=== PATIENT | female | born 1975 | race Caucasian/White ===

== ENCOUNTER 2023-01-16 01:45 | Day surgery (SDC) | payer BC, SELFPAY ==
[2023-01-05 15:24] VITALS: BMI 20.2
[2023-01-16 09:11] VITALS: BP 118/83; PULSE 87; RESP 16; TEMP 36.6; O2SAT 98; BMI 19.1
[2023-01-16] MEDS: LACTATED RINGERS 1,000 ML 150 ML IV CONT (09:23)
--- NOTE | 2023-01-16 09:50 | PM.HPGS ---
History of Present Illness History of Present Illness Consent: Risks, benefits, and alternatives have been discussed and questions answered. Patient agrees to proceed with procedure. Chief complaint: LLQP Narrative: Lindsay Caputo is a 47 year old female here for screening colonoscopy, had one at 33 yo because constipation, also she has intermittent llq pain Review of Systems Constitutional: Constitutional: Denies headache(s) and Denies weakness Eyes: Eyes: Denies blurry vision ENT: Reports Normal hearing present, Denies headache(s) and Denies neck pain Cardiovascular: Cardiovascular: Denies chest pain and Denies dyspnea Respiratory: Respiratory: Denies dyspnea Gastrointestinal: Gastrointestinal: Reports no additional gastrointestinal complaints Genitourinary: Genitourinary: Denies dysuria Musculoskeletal: Musculoskeletal: Denies neck pain Integumentary/Breasts: Skin/Breast: Denies dry skin Neurologic: Reports Normal hearing present, Denies headache(s) and Denies weakness Psychiatric: Psychiatric: Denies anxiety Endocrine: Endocrine: Denies change in body appearance Hematologic/Lymphatic: Hematologic/Lymphatic: Denies easy bleeding Allergic/Immunologic: Allergic/Immunologic: Denies urticaria PMFSH Past Medical History Medical History (Updated 11/22/22 @ 14:22 by Laura Summers, ABISAI) Acne treated by social work program coordinator Dr. romo Acute non-recurrent maxillary sinusitis Allergies BMI 20.0-20.9, adult Body mass index (BMI) of 19.0 to 19.9 in adult Encounter for wellness examination in adult Family history of pancreatic cancer Irregular menses LLQ abdominal pain Lower abdominal pain Otitis Screening for colon cancer Seasonal allergic rhinitis treated by altitude chamber technician with immunotherapy with allergies to grasses, mold, trees, dust mite, ragweed, dander Vitamin B12 deficiency (11/07/22) level low at 346 with goal greater than 400 with hemoglobin 15.3 on 11/07/2022. Family History Family History Father Diabetes mellitus Heart disease Mother Lymphoma Diabetes mellitus Grandparent Hypertension Grandparent Diabetes mellitus Social History Social History Smoking status: Never smoker Alcohol intake: current Alcohol use details: occasionally Substance use: never Substance use type: does not use Lack of Transportation: No Lack of Food: Never True Current Housing: I Have Housing Concerned About Future Housing: No Difficulty Paying Gas/Electric Bills: No Difficulty Paying for Meds: No Currently Unemployed: No Education: Master's Degree or Higher Difficulty w/ Childcare or Family Care: No Living arrangements: with family Spiritual care concerns: No Meds Home Medications and Allergies Home Medications Medication Instructions Recorded Confirmed Type fexofenadine 180 mg tablet 180 mg PO DAILY PRN Allergy 09/28/21 01/16/23 History (Perlita Allergy) spironolactone 100 mg tablet 100 mg PO DAILY 09/28/21 01/16/23 History Women's Daily 1 tab-cap PO DAILY 01/05/23 01/16/23 History fluticasone propionate 50 1 spray intranasal DAILY 01/05/23 01/16/23 History mcg/actuation nasal spray,suspension (Flonase Allergy Relief) omega 8-iwu-qeu-fish oil 1,200 mg 1 cap PO DAILY 01/05/23 01/16/23 History (144 mg-216 mg) capsule (Fish Oil) Allergies Allergy/AdvReac Type Severity Reaction Status Date / Time No Known Allergies Allergy Verified 01/16/23 09:08 Vital Signs Vital Signs - 24 hr 01/16/23 09:11 Temperature 97.8 F Pulse Rate 87 Respiratory Rate 16 Blood Pressure 118/83 Pulse Oximetry 98 Oxygen Delivery Room Air Exam Const: General: comfortable and no acute distress HENMT: Face/Nose/Sinus: Normal nares present Eyes: General: appearance normal, both eyes and all related structures Neck: Neck: no JVD Resp: Au
--- NOTE | 2023-01-16 09:53 | WPDANESEPPF ---
Anes - Initial Pre Proc Eval Procedure: Operation Date: 01/16/23 10:30 Proposed Procedures p Colonoscopy - Jh Baltazar MD Date/Time: 01/16/23 09:53 Surgeon: Jh Baltazar MD Pre Op Diagnosis: LLQP Patient Data Age: 47 Gender: F Height: 1.63 m Weight: 50.4 kg Last Vital Signs Temp 97.8 F 01/16/23 09:11 Pulse 87 01/16/23 09:11 Resp 16 01/16/23 09:11 BP 118/83 01/16/23 09:11 Pulse Ox 98 01/16/23 09:11 O2 Del Method Room Air 01/16/23 09:11 Allergies Allergy/AdvReac Type Severity Reaction Status Date / Time No Known Allergies Allergy Verified 01/16/23 09:08 Home Medications Medication Instructions Recorded Confirmed Type fexofenadine 180 mg tablet 180 mg PO DAILY PRN Allergy 09/28/21 01/16/23 History (Perlita Allergy) spironolactone 100 mg tablet 100 mg PO DAILY 09/28/21 01/16/23 History Women's Daily 1 tab-cap PO DAILY 01/05/23 01/16/23 History fluticasone propionate 50 1 spray intranasal DAILY 01/05/23 01/16/23 History mcg/actuation nasal spray,suspension (Flonase Allergy Relief) omega 1-tbs-tue-fish oil 1,200 mg 1 cap PO DAILY 01/05/23 01/16/23 History (144 mg-216 mg) capsule (Fish Oil) Patient hx anesthesia problems: none Family hx anesthesia problems: none Results Review: All pre-operative results and documents have been reviewed as part of the pre-operative evaluation. 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 romo Acute non-recurrent maxillary sinusitis Allergies BMI 20.0-20.9, adult Body mass index (BMI) of 19.0 to 19.9 in adult Encounter for wellness examination in adult Family history of pancreatic cancer Irregular menses LLQ abdominal pain Lower abdominal pain Otitis Screening for colon cancer Seasonal allergic rhinitis treated by patient admitting representative with immunotherapy with allergies to grasses, mold, trees, dust mite, ragweed, dander Vitamin B12 deficiency (12/19/22) level low at 346 with goal greater than 400 with hemoglobin 15.3 on 11/07/2022. Family History Family History Father Diabetes mellitus Heart disease Mother Lymphoma Diabetes mellitus Grandparent Hypertension Grandparent Diabetes mellitus Social History Social History Smoking status: Never smoker Alcohol intake: current Alcohol use details: occasionally Substance use: never Substance use type: does not use Lack of Transportation: No Lack of Food: Never True Current Housing: I Have Housing Concerned About Future Housing: No Difficulty Paying Gas/Electric Bills: No Difficulty Paying for Meds: No Currently Unemployed: No Education: Master's Degree or Higher Difficulty w/ Childcare or Family Care: No Living arrangements: with family Spiritual care concerns: No Anes - Eval Final PreProcedure Day of Procedure 01/16/23 09:53 Patient weight: normal Heart: regular rate and rhythm Lungs: clear to auscultation Airway: Mallampati scale class II Neurological: alert and oriented Last oral intake: >/= 8 hours ASA classification: I Emergent: no Anesthetic plan: proceed Anesthesia type and monitoring: general GIVS and standard monitoring Results Review: All pre-operative results and documents have been reviewed as part of the pre-operative evaluation. Informed Consent: The patient's anesthetic plan and its attendant risks and benefits were discussed with the patient/family/POA. Questions were solicited and answers provided to the satisfaction of the patient/family/POA.
[2023-01-16 10:11] VITALS: BP 113/72; PULSE 75; RESP 19; O2SAT 100
[2023-01-16 10:21] VITALS: BP 117/78; PULSE 65; RESP 18; O2SAT 100
[2023-01-16 10:31] VITALS: BP 123/82; PULSE 66; RESP 14; O2SAT 100
== END 2023-01-16 10:43 | disposition home or self-care (01) ==
PROVIDERS: PCP Family Medicine; Visit Provider Internal Medicine Gastroenterology
PROC: 0DJD8ZZ Inspection of Lower Intestinal Tract, Via Natural or Artificial Opening Endoscopic (ICD-10-PCS; CPT 45378; principal; 2023-01-16 10:30)
DX: Z12.11 Encounter for screening for malignant neoplasm of colon (principal)
CPT/HCPCS: 45378; J2704; J7120

== ENCOUNTER 2023-06-07 14:13 | Outpatient (CLI) | payer BC, SELFPAY ==
--- NOTE | ~2023-06-07 | CT_ITS ---
EXAMINATION: CT abdomen pelvis w con DATE: 06/07/2023 14:59 INDICATION: Left lower quadrant abdominal pain TECHNIQUE: Computed tomography (CT) of the abdomen and pelvis was performed with 100 CC Omnipaque 350 intravenous contrast. Automated exposure control and iterative reconstruction technique were employe d. Exam dose: 206.54 mGy-cm total exam DLP. COMPARISON: None. FINDINGS: Normal heart size. No pericardial or pleural effusion. The lung bases are clear of infiltra te or consolidation. The liver, gallbladder, bile ducts, spleen, pancreas, pancreatic duct, and adrenal glands and kidneys appear normal. Normal caliber of the abdominal aorta. Multiple right adnexal cysts measuring up to 3.5 cm, likely ovarian or paraovarian. Consider pelvic u ltrasound correlation as clinically appropriate. The uterus and adnexal areas and urinary bladder oth erwise appear unremarkable. There is a prominent amount of fecal material in the colon. No bowel obstruction, bowel wall thickeni ng, pneumatosis or intraperitoneal free air is detected. Normal caliber of the abdominal aorta. No intraperitoneal or retroperitoneal or pelvic mass lesion or adenopathy or ascites. Included skeletal structures are unremarkable. IMPRESSION: Right ovarian and/or paraovarian cyst measuring up to 3.5 cm; consider pelvic ultrasound correlation Reviewed, dictated and finalized at [facility]. Reviewed, dictated and finalized at location [facility]. IMPRESSION: Right ovarian and/or paraovarian cyst measuring up to 3.5 cm; cons ider pelvic ultrasound correlation
== END 2023-06-07 14:14 | disposition home or self-care (01) ==
PROVIDERS: PCP Family Medicine; Visit Provider Nurse Practitioner
DX: R10.32 Left lower quadrant pain (principal); N83.201 Unspecified ovarian cyst, right side
CPT/HCPCS: 74177; Q9967

== ENCOUNTER 2025-05-14 10:23 | Outpatient (CLI) | payer BC, SELFPAY ==
--- NOTE | ~2025-05-14 | US_ITS ---
RIGHT UPPER QUADRANT ABDOMINAL ULTRASOUND (Doppler ultrasound interrogation techniques used as needed for this exam.) Ordering provider: Alistair Coon MD History: . K80.50 - Calculus of bile duct without cholangitis or cho... . Comparison: None. FINDINGS: PANCREAS: Normal echotexture and size. PORTAL VEIN: Hepatopedal flow demonstrated. LIVER: Normal size and echotexture. No focal hepatic lesions or perihepatic fluid collections are kerrie ntified. BILIARY DUCTS: No intra or extrahepatic biliary dilation. Common bile duct measures 4 mm in diameter which is normal for patient's age. GALLBLADDER: Normal. No stones, sludge, gallbladder wall thickening or pericholecystic fluid. Negati ve sonographic Hector's sign. FREE FLUID: None visualized within the upper abdomen. IMPRESSION: normal right upper quadrant ultrasound. Reviewed, dictated and finalized at location A.
== END 2025-05-14 10:24 | disposition home or self-care (01) ==
PROVIDERS: PCP Family Medicine; Visit Provider Family Medicine
DX: K80.50 Calculus of bile duct without cholangitis or cholecystitis without obstruction (principal)
CPT/HCPCS: 76705

== ENCOUNTER 2025-06-11 08:23 | Outpatient (CLI) | payer BC, SELFPAY ==
--- NOTE | ~2025-06-11 | NM_ITS ---
[id number] Procedure: Hepatobiliary scan performed following IV administration 4.6 mCi Tc 99m Choletec. At 60 m inutes 1 mcg CCK administered IV for evaluation of gallbladder ejection fraction. Indication: Stone in the bile ducts. Comparison: No prior studies for comparison. Findings: There is normal radiotracer uptake in the liver parenchyma with prompt excretion into the b iliary tract. Gallbladder visualized at 25 minutes. There is normal flow of tracer into the bowel. Gallbladder ejection fraction is 11%. (Normal is considered 10-90%, but most patients with gallbladde r dysfunction have GBEF of less than 35%) Impression: 1: Low gallbladder ejection fraction measuring 11%. Low GBEF is associated with gallbladder dysfunct ion, although not specific for acute or chronic cholecystitis. Reviewed, dictated and finalized at location A. Impression: 1: Low gallbladder ejection fraction measuring 11%. Low GBEF is associated wit h gallbladder dysfunction, although not specific for acute or chronic cholecyst itis.
--- OUTSIDE RECORDS SUMMARY | 2025-06-11 08:29 | XMS_ITS | Encounter Summary ---
Author Organization [facility] Healthcare Address [address] [place] [address] Care Team Providers Care Retail Account Manager Name Role Phone Alistair Coon MD Primary Care Provider [phone] Encounter Details Date Type Department Care Team (Latest Contact Info) Description 05/07/2025 Results Follow-Up [facility] Obstetrical Gynecology [address] [address] Kymberly Parsons MD [address] [place] [address] [phone] Pap and High Risk HPV and Genotyping (Cytology Component) Social History Tobacco Use Types Packs/Day Years Used Date Smoking Tobacco: Never Passive Smoke Exposure: Never Smokeless Tobacco: Never Comments No Sex and Gender Information Value Date Recorded Sex Assigned at Not on file 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
--- OUTSIDE RECORDS SUMMARY | 2025-06-11 08:29 | XMS_ITS ---
Author Organization [facility] ([address]) Address [address] [place] [address] Care Team Providers Care Road Mixer Operator Name Role Phone Froylan HARPER, Larry Primary Care Provider Richard Baez Unavailable [phone] Madonna HARPER, Kenn Unavailable Unavailable Sidra Molina [phone] REASON FOR VISIT [facility] follow-up Encounters Encounter Location Date Provider Diagnosis [address] [address] 03/20/2025 Sidra Molina Plan Of Treatment No Information Progress Notes * Lindsay PALMER RDOB: [birth year] (50 yo F)Acc No.[id number]:03/20/2025 Progress Notes Patient: Leena RAGLAND Lindsay Meir Provider: Shalom Molina DNP MOISTURE MACHINE TENDER-C :1975 A ge:50 Y S ex:Female Date:03/20/2025 Address:[address] [facility] Pcp:Larry Galeano MD Subjective: * Chief Complaints: * 1 . [facility] follow-up. * Medical History: Objective: * Vitals: Assessment: Plan: * Treatment: * Billing Information: * Visit Code: * Procedure Codes: * Electronic signature of Sidra Molina DNP, FNP-C on 06/11/2025 at 08:28 AM CDT Sign off status: Pending * Provider: PRADEEP Castaneda Date: 0 03/20/2025 Generated for Brad zhu/Lakisha/Mario on: 0 06/11/2025 08:28 AM CDT
--- OUTSIDE RECORDS SUMMARY | 2025-06-11 08:29 | XMS_ITS | Clinical Summary ---
Author Organization [facility] Address [address] [place] [address] Care Team Providers Care Media Assistant Name Role Phone Unavailable Primary Care Provider Unavailabl e Source Comments [facility],non-owned Affiliates and Associated Physician Practices is amultiple site organization consisting of ambulatory clinics and hospital sitesin [place], [place], [place] and [place]. This disclosure is being madepursuant to the Care Everywhere program and may not contain all information available regarding this patient. Last updated 18.[facility] Social History Tobacco Use Types Packs/Day Years Used Date Smoking Tobacco: Never Assessed Comments Unknown Sex and Gender Information Value Date Recorded Sex Assigned at Not on file Legal Sex Female 9:30 AM CDT Gender Identity Not on file Sexual Orientation Not on file Plan of Treatment Health Maintenance Due Date Last Done Comments COLOGUARD (AGES 45-75) - COL ON CA SCREENING 1975 COLON MONITORING 1975 COLONOSCOPY - COLON CA SCREENING 1976 CT COLONOGRAPHY - COLON CA SCREENING 1975 Colorectal Cancer Screening 1975 FIT - COLON CA SCREENING 1976 FLEX SIG - COLON CA SCREENING 1976 LIPID TESTING 1975 MAMMOGRAM 1976 HIV SCREENING 1991 HEPATITIS C SCREENING 03/12/1994 DTAP/TDAP/TD VACCINES (1 - Tdap) 1995 HEPATITIS B VACCINE (1 of 3 - 19+ 3-dose series) 1995 PAP SMEAR 1997 COVID-19 VACCINE ( - 2023-2 5 season) 2024 DEPRESSION SCREENING 11/20/2024 INFLUENZA VACCINE (#1) 2025 ZOSTER VACCINE (1 of 2) 2026 HIB VACCINE Aged Out No longer eligi ble based on patient's age to complete this topic HPV VACCINE Aged Out No longer eligi ble based on patient's age to complete this topic MENINGOCOCCAL (Group B) VACC INE SHARED DECISION-MAKING Aged Out No longer eligibl e based on patient's age to complete this topic MENINGOCOCCAL GROUPS A/C/Y/W VACCINE Aged Out No longer eligible b ased on patient's age to complete this topic Insurance [facility]
--- OUTSIDE RECORDS SUMMARY | 2025-06-11 08:29 | XMS_ITS | Encounter Summary ---
Author Organization [facility] Address [address] [facility] [place] [address] Care Team Providers Care Aviation Technical Systems Specialist Name Role Phone Unavailable Primary Care Provider Unavailabl e Encounter Details Date Type Department Care Team (Late st Contact Info) Description 06/08/2023 Lab Requisition [facility] - DermPath Lab [address] [facility] [address] [place] [id number] Sher Dover MD [address] [facility] [place] [address] Social History Tobacco Use Types Packs/Day Years Used Date Smoking Tobacco: Never Assessed Comments Unknown Sex and Gender Information Value Date Recorded Sex Assigned at Not on file Legal Sex Female 9:30 AM CDT Gender Identity Not on file Sexual Orientation Not on file documented as of this encounter Plan of Treatment Not on file documented as of this encounter Procedures Procedure Name Priority Date/Time Associated Diagnosis Comments DERMATOPATHOLOGY Routine 06/06/2023 12:0 0 AM CDT documented in this encounter Results * DERMATOPATHOLOGY (06/06/2023 12:00 AM CDT) Case Report Dermatopathology Report Case: [id number] Authorizing Provider: Sher Dover MD Collected: 06/06/2023 12:00 AM Ordering Location: [facility] DermPath Lab Received: 06/08/2023 09:36 AM Pathologist: Leydi Daniel MD Specimen: Skin, right mid chest 3 3:12 PM CDT DERMATOPATHOLOGY LABORATORY Final Diagnosis Specimen A. SKIN, right mid chest: ACTINIC KERATOSIS, ACANTHOLYTIC TYPE (L57.0) EPIDERMAL NECROSIS SUGGESTIVE OF EXCORIATION (L98.499) (see microscopic description) 3 3:12 PM CDT DERMATOPATHOLOGY LABORATORY at 1512 CDT Clinical History BCCA vs angioma. Path#[id number] 3 3:12 PM CDT DERMATOPATHOLOGY LABORATORY Gross Description Specimen A: Received is one formalin filled container labeled with the patient's name and designated right mid chest. The specimen consists of a shave biopsy measuring 6x3x1 mm. Jar 0. 3 3:12 PM CDT DERMATOPATHOLOGY LABORATORY Microscopic Description Specimen A. SKIN, right mid chest: There is focal parakeratosis. The lower half of the epidermis shows disorderly maturation of keratinocytes with nuclear pleomorphism. Focally there is a suprabasilar cleft with acantholytic cells. The epidermis is focally necrotic and covered with a scale-crust. There is fibrin at the base. Additional deeper sections were obtained and reviewed. 3 3:12 PM CDT DERMATOPATHOLOGY LABORATORY Disclaimer An external and internal positive and negative controls are appropriate for the histochemical, immunohistochemical and immunofluorescence stain(s) in this case (if any), except where stated explicitly. The performance characteristics of the stain(s) cited in this report were developed and its performance characteristic determined by the Dermatopathology Laboratory at [facility], directed by Dr. Ibeth Engle. These tests need not be, and therefore are not, approved by the [place] Food and Drug Administration. The tests are used for clinical purposes. Billing Codes Specimen Charges Stain Charges 97283 1 3 3:12 PM CDT DERMATOPATHOLOGY LABORATORY Embedded Images 3 3:12 PM CDT DERMATOPATHOLOGY LABORATORY Pathology/Cytolog y TISSUE SPECIMEN FROM SKIN / Unknown 06/06/2023 06/08/2023 9:36 AM CDT us Sher Dover MD LAB - PATHOLOGY/CYTOLOGY ORDER JOSE Final Result DERMATOPATHOLOGY LABORATORY [facility] - Department of Dermatology [address] [place] [address], [facility] [phone] documented in this encounter Visit Diagnoses Not on filedocumented in this encounter
--- OUTSIDE RECORDS SUMMARY | 2025-06-11 08:29 | XMS_ITS | Clinical Summary ---
Author Organization [facility] Building [address] [place] [phone] Care Team Providers Care Stock Blender Name Role Phone Alistair Coon MD Primary Care Provider [phone] Allergies No known active allergies Medications azithromycin (ZITHROMAX) 250 mg tablet TAKE 2 TABLETS BY MOUTH TODAY, THEN TAKE 1 TABLET DAILY FOR 4 DAYS 09/01/20 22 Active calcium carbonate-vitamin D3 (Caltrate 600 plus D) 1,500 mg (600 mg elemental)-800 unit tablet,chewable every 12 hours Active fluticasone propionate (FLONASE) 50 mcg/actuation nasal spray USE 2 SPRAYS INTRANASALLY ONCE A DAY FOR 30 DAYS 07/04/20 22 Active olopatadine 0.6 % spray,non-aerosol olopatadine 0.6 % nasal spray Active spironolactone (ALDACTONE) 100 mg tablet 07/25/20 22 Active valACYclovir (VALTREX) 1 gram tablet valacyclovir 1 gram tablet Active drospirenone-kristin trol (Nextstellis) 3 mg- 14.2 mg (28) tablet Take 1 tablet by mouth daily 28 tablet 3 10/05/20 22 Active Additional Information Patient not taking.Reported on 04/29/2025 predniSONE (DELTASONE) 20 mg tablet Take 1 tablet (20 mg) by mouth daily 02/17/20 23 Active cefdinir (OMNICEF) 300 mg capsule Take 1 capsule (300 mg total) by mouth every 12 (twelve) hours 02/11/20 23 Active fexofenadine (Perlita Allergy) 180 mg tablet daily Active azelastine (ASTELIN) 137 mcg (0.1 %) nasal spray every 12 hours 02/03/20 23 Active EPINEPHrine 1:100,000 in bacteriostatic sodium chloride 0.9% syringe 0.3 mg intramuscularly once for 1 dose(s) Active escitalopram (LEXAPRO) 5 mg tablet Take 1 tablet (5 mg total) by mouth daily 90 tablet 1 06/21/20 23 Active Additional Information Patient not taking.Reported on 04/29/2025 ipratropium (ATROVENT) 42 mcg (0.06 %) nasal spray Administer 1-2 sprays into affected nostril(s) 3 (three) times a day 10/11/20 23 Active busPIRone (BUSPAR) 10 mg tabletIndications :Generalized Anxiety Disorder Take 1 tablet (10 mg total) by mouth 3 (three) times a day as needed (anxiety) 30 tablet 3 11/16/20 23 Active Additional Information Patient not taking.Reported on 04/29/2025 levocetirizine (XYZAL) 5 mg tablet Take 1 tablet (5 mg total) by mouth daily 12/07/19 24 Active tobramycin-dexAME THasone (TOBRADEX) ophthalmic solution instill 1 drop into affected eye(s) every 6 hours for 1 week, shake well 08/10/20 24 Active Active Problems No known active problems Encounters Date Type Department Care Team Description 05/07/2025 Results Follow-Up [facility] Obstetrical Gynecology [address] [phone] Kymberly Parsons MD Pap and High Risk HPV and Genotyping (Cytology Component) 04/29/2025 12:17 PM CDT - 04/29/2025 11:59 PM CDT Hospital Encounter [facility] Medical Office Building [address] [place] [phone] Well woman exam Discharge Disposition: Discharge to home or self care 04/29/2025 9:30 AM CDT Office Visit [facility] Obstetrical Gynecology [address] [facility] [address] [place] [phone] Kymberly Parsons MD Well woman exam (Primary Dx) from Last 3 Months Medical History Medical History Date Comments Ovarian cyst Family History Medical History Relation Name Comments Non-Hodgkin's Lymphoma Mother Pancreatic cancer Mother Breast cancer Neg Hx Colon cancer Neg Hx Ovarian cancer Neg Hx Prostate cancer Neg Hx Uterine cancer Neg Hx Relation Name Status Comments Father Mother Alive Social History Tobacco Use Types Packs/Day Years Used Date Smoking Tobacco: Never Passive Smoke Exposure: Never Smokeless Tobacco: Never Tobacco Cessation:Counseling Given: Not Answered Comments No Sex and Gender Information Value Date Recorded Sex Assigned at Not on file 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 Gender Identity Not on file Sexual Orientation Not on file Obstetrics History Para Term AB IAB SAB Ectopic Multiple Livin g Live Births 2 2 2 2 2 Date Outcome GA Total Labor Labor/2nd/3rd Weight Sex Type Anes PTL Nydia A1 A5 Name Clin Term Term Comments Last Filed Vital Signs Vital Sign Reading Time Taken Comments Blood Pressure 110/80 04/29/2025 9:41 AM CDT Pulse - - Temperature - - Respiratory Rate - - Oxygen Saturation - - Inhaled Oxygen Concentration - - Weight 52.6 kg (116 lb) 04/29/2025 9:41 AM CDT Height 162.6 cm (5' 4) 04/29/2025 9:41 AM CDT Body Mass Index 19.91 04/29/2025 9:41 AM CDT Plan of Treatment Health Maintenance Due Date Last Done Comments Colon Cancer Screening-Colonoscopy 1975 Depression Screening 1975 Hepatitis C Screening 1975 Hepatitis B Screening 1994 DTaP/Tdap/Td Vaccine (1 - Tdap) 08/06/2018 08/05/2018 Breast Cancer Screening-Mammogram 08/05/2025 08/05/2024, 08/03/2023, 07/08/2022, Additional history exists Cervical Cancer Screening 04/29/20262024, 04/29/2025, 09/06/2022 Regular Well Visit/Exam 18-64 04/29/2026 04/29/2025, 11/16/2023, 09/06/2022 Influenza Vaccine Completed 08/31/2024, , 08/30/2020, Additional history exists Pneumococcal vaccine <65 Aged Out No longer eligible based on patient's age to complete this topic Procedures Procedure Name Priority Date/Time Associated Diagnosis Comments PAP AND HIGH RISK HPV, REFLEX TO GENOTYPING Routine 04/29/2025 10:23 AM CDT Well woman exam HIGH RISK HPV DNA DETECTION WITH GENOTYPING Routine 04/29/2025 10:23 AM CDT Well woman exam SCREENING MAMMOGRAM BILATERAL W RAYRAY Schedule Routine, Read Routine (OP Routine) 08/05/2024 4:10 PM CDT Screening mammogram, encounter for from Last 3 Months or Most Recently Relevant to Health Maintenance Results * High Risk HPV DNA Detection with Genotyping (Molecular component) (04/29/2025 10:23 AM CDT) HPV HR 16 Not Detected Not Detected [facility] Comment:Testing performed by : [facility], [address] [place]., [address] HPV HR 18 Not Detected Not Detected JOSE Comment:Testing performed by : [facility], [address] [place]., [address] HPV HR Non 16/18 Not Detected Not Detected JOSE Comment: Interpretive Data Nucleic acid amplification for detection of high-risk Human Papilloma virus (HPV) is performed by the Woodrow Tito 6800 HPV test. This assay specifically detects HPV-16 and HPV-18 genotypes. The following HPV genotypes are detected as high-risk HPV: HPV-31, 33, 35, ,39, 45, 51, 52, 56, 58, 59, 66, and 68. This assay has been approved by the [place] Food and Drug Administration for detection of HPV in cervical specimens collected by a physician using an endocervical brush/spatula or cervical broom and placed in the ThinPrep Pap Test PreservCyt collection containers. The performance characteristics of this test have been verified by the [facility] Molecular Infectious Disease laboratory. Correlate with separately reported cytology results, as applicable. Interpretive data last revised 23 Testing performed by: [facility], [address] [place]., [address] Endocervical 04/29/2025 10:2 3 AM CDT 04/30/2025 7:44 AM CDT Narrative JOSE - 05/01/2025 4:47 AM CDT Clinical history and diagnosis->screening Testing type->Screening Last menstrual period (date if known)->03/24/25 Kymberly Parsons MD LAB BODY FLUIDS AND STOOL S ORDERABLES Final Result JOSE [address] [facility] Department [place] [address] [facility] * Pap and High Risk HPV and Genotyping (Cytology Component) (04/29/2025 10:23 AM CDT) Thin prep (Pap test) 04/29/2025 10:23 AM CDT 04/30/2025 2:17 AM CDT Narrative PATHOLOGY [facility] - 05/06/2025 9:14 PM CDT EPIC results best viewed via link to PDF [facility] [place] [address] Note to Patients: This report may contain a detailed description of human tissue sent by a health care provider to the laboratory for pathologic evaluation. The content of this report is essential for diagnosis and may provide important critical findings. This information may be unfamiliar to patients to review without a medical professional present. It is advised that the patient review this report in the presence of a health care provider who can answer questions and explain the details. CYTOPATHOLOGY REPORT FINAL Patient Name: SHANITA PALMER Gender: Veronika : 1975 (Age: 50) Address: [address] [place] [phone] Hospital #: [id number] Service: DEFAULT Location: Patient Type: [facility] SPECIMEN Taken: 04/29/2025 Received: 04/30/2025 Accessioned: 04/30/2025 Reported: 05/06/2025 Physician(s): Kymberly Parsons M.D. FINAL INTERPRETATION SOURCE OF SPECIMEN Liquid based Thin Prep pap with HPV: STATEMENT OF ADEQUACY - Satisfactory for evaluation - Endocervical cells/transformation zone sample absent - Obscuring inflammation present GENERAL CATEGORIZATION: - Negative for squamous intraepithelial lesion or malignancy INTERPRETATION: - Reactive cellular changes associated with inflammation Comments (Normal-Negative for High Risk HPV) HPV HR 16- Not detected HPV HR 18-Not detected HPV HR non 16/18- Not detected Interpretive Data Nucleic acid amplification for detection of high-risk Human Papilloma virus (HPV) is performed by the Woodrow Tito 6800 HPV test. This assay specifically detects HPV- 16 and HPV-18 genotypes. The following HPV genotypes are detected as high-risk HPV: HPV-31, 33, 35, 39, 45, 51, 52, 56, 58, 59, 66, and 68. This assay has been approved by the [place] Food and Drug Administration for detection of HPV in cervical specimens collected by a physician using an endocervical brush/spatula or cervical broom and placed in the ThinPrep Pap Test PreservCyt collection containers. The performance characteristics of this test have been verified by the [facility] Molecular Infectious Disease laboratory. Correlate with reported cytology results, as applicable. Interpretive data last revised 23 [facility]/05/06/2025 21:14 By this signature, I attest that the above diagnosis is based upon my personal examination of the slides(and/or other material indicated in the diagnosis). Bethel Son DO Report Electronically Reviewed and Signed Out By Bethel Son DO 05/06/2025 21:14:24 TORRES Suarez (ASCP) Cervicovaginal Cytology (Pap Test) Disclaimer: The Pap test is a screening test used to detect cervical cancer and its precursors; it is not a diagnostic procedure. False negative and false positive results do occur. Pap test results should be interpreted in the context of pertinent clinical information and biopsy results as indicated. CMS Clinical Laboratory Improvement Amendments (CLIA) mandate that cytologic and histologic results be correlated for laboratory quality assurance manager & improvement standards. FOR ALL HIGH-GRADE CASES we request submission of follow-up histological material and/or reports that have not been previously provided so that we may fulfill said required standards. Gross Description A. Liquid based Thin Prep pap with HPV: Cervical/vaginal - Screening ThinPrep Clinical Diagnosis and History Last Menstrual Period: 03/24/25 The patient is a 50 year old woman with screening pap. Report Images and scanned documents, if included only viewable in PDF version The performance characteristics of some immunohistochemical stains, in-situ hybridization and fluorescence in-situ hybridization tests and immunophenotyping by flow cytometry cited in this report (if any) were determined by the Surgical Pathology Department at [facility] as part of an ongoing senior software quality engineer program and in compliance with federally mandated regulations drawn from the Clinical Laboratory Improvement Act of 1988 (CLIA '88). Some of these tests rely on the use of analyte specific reagents and are subject to specific labeling requirements by the [place] Food and Drug Administration. Such diagnostic tests may only be performed in a facility that is certified by the Department of Health and Human Services as a high complexity laboratory under CLIA '88. The FDA has determined that such clearance or approval is not necessary. This test is used for clinical purposes. It should not be regarded as investigational or for research. Nevertheless, federal rules concerning the medical use of analyte specific reagents require that the following disclaimer be attached to the report: This test was developed and its performance characteristics determined by the Surgical Pathology Department of [facility]. It has not been cleared or approved by the U. S. Food and Drug Administration. Kymberly Pasrons MD LAB CYTOLOGY ORDERABLES F inal Result PATHOLOGY [facility] * Screening Mammogram Bilateral W Rayray (08/05/2024 4:10 PM CDT) Anatomical Region Laterality Modality Breast Bilateral Mammography Impressions 08/05/2024 5:56 PM CDT BI-RADS ATLAS category (overall): 1 - Negative There is no mammographic evidence of malignancy. A 1 year screening mammogram is recommended. The patient has been or will be contacted. We recommend annual screening mammography for women at average risk of breast cancer beginning at age 40, based on guidelines of the [place] [employer] (ACR Practice Parameter for the Performance of Screening and Diagnostic Mammography) and [place] [employer]. For women with and elevated risk of breast cancer, please refer to the ACR Practice Parameter for specific screening recommendations. The patient will be entered into a reminder system with a target due date of 1 year for her next screening exam. Narrative 08/05/2024 5:56 PM CDT Screening Mammogram Bilateral W Rayray: 08/05/24 The study was acquired using full field digital technology and interpreted from soft copy. 2D digital mammographic views, as well as 3D digital tomosynthesis were performed in the CC and MLO projections. CLINICAL: Screening mammogram, encounter for. No relevant medical history has been documented for this patient. History of breast cancer in Neg Hx. COMPARISONS: 08/03/2023 Screening Mammogram Bilateral W Rayray 07/08/2022 Screening Mammogram Bilateral W Rayray 06/28/2021 Screening Mammogram Bilateral W Rayray 05/25/2020 Screening Mammogram Bilateral W Rayray BREAST TISSUE: The breasts are heterogeneously dense, which may obscure small masses. FINDINGS: There is no new suspicious finding in either breast on mammogram. us Self Screening Mammogram IMG MAMMO PROCEDURES Fi nal Result from Last 3 Months or Most Recently Relevant to Health Maintenance [place] [facility] Care Teams Stock Blender Relationship Specialty Start Date End Date Alistair Coon MD [address] [address] PCP - General Family Medicine 07/08/22
--- OUTSIDE RECORDS SUMMARY | 2025-06-11 08:29 | XMS_ITS | Referral Summary ---
Author Organization [facility] Medical Office Building [address] [place] [phone] Care Team Providers Care Pull Over Name Role Phone Alistair Coon MD Primary Care Provider [phone] Encounters Date Type Department Care Team Description 05/07/2025 Results Follow-Up [facility] Medical [facility] Obstetrical Gynecology [address] [phone] Kymberly Parsons MD Pap and High Risk HPV and Genotyping (Cytology Component) 04/29/2025 12:17 PM CDT - 04/29/2025 11:59 PM CDT Hospital Encounter [facility] Building [address] [place] [phone] Well woman exam Discharge Disposition: Discharge to home or self care 04/29/2025 9:30 AM CDT Office Visit [facility] Obstetrical Gynecology [address] [place] [phone] Kymberly Parsons MD Well woman exam (Primary Dx) from Last 3 Months Allergies No known active allergies Medications azithromycin [...] Active Active Problems No known active problems Social History Tobacco Use Types Packs/Day Years Used Date Smoking Tobacco: Never Passive Smoke Exposure: Never Smokeless Tobacco: Never Tobacco Cessation:Counseling Given: Not Answered Comments No Sex and Gender Information Value Date Recorded Sex Assigned at Not on file 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 Gender Identity Not on file Sexual Orientation Not on file Last Filed Vital Signs Vital Sign Reading [...] 04/29/2025 9:41 AM CDT Plan of Treatment Not on file Procedures Procedure Name Priority Date/Time Associated Diagnosis [...] HPV HR 16 Not Detected Not Detected [facility] Comment:Testing performed by : [facility], [address] [place] [address] HPV HR 18 Not Detected Not Detected [facility] Comment:Testing performed by : [facility], [address] [place] [address] HPV HR Non 16/18 Not Detected Not Detected [facility] Comment: Interpretive Data Nucleic acid amplification for [...] this test have been verified by the [facility] Molecular Infectious Disease laboratory. Correlate with separately reported cytology results, as applicable. Interpretive data last revised 23 Testing performed by: [facility], [address] [place]., [address] Endocervical 04/29/2025 10:2 3 AM CDT 04/30/2025 7:44 AM CDT Narrative JOSE - 05/01/2025 4:47 AM CDT Clinical history and diagnosis->screening Testing type->Screening Last menstrual period (date if known)->03/24/25 Kymberly Parsons MD LAB BODY FLUIDS AND STOOL S ORDERABLES Final Result JOSE [address] [facility] Department [place] [address] [facility] * Pap and High Risk HPV and Genotyping (Cytology Component) (04/29/2025 10:23 AM CDT) Thin prep (Pap test) 04/29/2025 10:23 AM CDT 04/30/2025 2:17 AM CDT Narrative PATHOLOGY [facility] - 05/06/2025 9:14 PM CDT EPIC results best viewed via link to PDF [facility] [place] [address] Note to Patients: This report may contain [...] REPORT FINAL Patient Name: SHANITA PALMER Gender: F : 1975 (Age: 50) Address: [address] [place] [phone] Hospital #: [id number] Service: DEFAULT Location: Patient Type: [facility] SPECIMEN Taken: 04/29/2025 Received: 04/30/2025 Accessioned: [...] this test have been verified by the [facility] Molecular Infectious Disease laboratory. Correlate with reported cytology results, as applicable. Interpretive data last revised 23 [facility]/05/06/2025 21:14 By this signature, I attest that [...] clinical information and biopsy results as indicated. [facility] Clinical Laboratory Improvement Amendments (CLIA) mandate that cytologic and histologic results be correlated for laboratory quality worker & improvement standards. FOR ALL HIGH-GRADE CASES [...] determined by the Surgical Pathology Department at [facility] as part of an ongoing quality assurance advisor program and in compliance with federally mandated [...] determined by the Surgical Pathology Department of [facility]. It has not been cleared or approved by the U. S. Food and Drug Administration. Kymberly Parsons MD LAB CYTOLOGY ORDERABLES F inal Result PATHOLOGY [facility] * Screening Mammogram Bilateral W Rayray (08/05/2024 [...] age 40, based on guidelines of the [employer] (ACR Practice Parameter for the Performance of Screening and Diagnostic Mammography) and [employer]. For women [...] Most Recently Relevant to Health Maintenance Insurance [facility] [place] Care Teams Pull Over Relationship Specialty Start Date End Date Alistair Coon MD [address] [address] PCP - General Family Medicine 07/08/22
--- OUTSIDE RECORDS SUMMARY | 2025-06-11 08:29 | XMS_ITS | Data Portability ---
Author Organization [facility], [employer] Address [address] [address] Assessment Encounter Date Assessment Date Assessment LastModified by Organization Details LastModified Time 05/15/2017 05/15/2017 Discussed potential complications and intervention options with the patient during this visit. Patient was instructed to increase room humidity and eat soft bland foods. Patient was instructed to gargle frequently with warm salt water. Raising the head of the bed, lozenges, and saline nasal spray were also recommended. Patient may take ibuprofen or acetaminophen as needed for pain control. If the issue does not improve in 24-48 hours, patient should return to the clinic for follow-up. Patient presented for follow up. Studies ordered as below. Discussed plan with patient/caregiver , who expressed understanding. Follow up as noted below. [email or web address] Not available 05/15/2017 14:39:09 07/15/2019 07/15/2019 Patient presente d to office today for their Medicare Annual Wellness Visit. Education was provided on healthy nutrition, including a diet rich in fruits and vegetables, minimizing simple carbohydrates, salt, and saturated fats. Encouraged regular cardiovascular exercise such as walking at least 30 minutes daily, 5 times per week. Emphasized preventive health measures and educated pt on fall prevention and community-based lifestyle interventions to help reduce health risks and promote healthy living. [email or web address] Not available 07/15/2019 18:41:52 07/15/2020 07/15/2020 Patient presente d to office today for their Medicare Annual Wellness Visit. Education was provided on healthy nutrition, including a diet rich in fruits and vegetables, minimizing simple carbohydrates, salt, and saturated fats. Encouraged regular cardiovascular exercise such as walking at least 30 minutes daily, 5 times per week. Emphasized preventive health measures and educated pt on fall prevention and community-based lifestyle interventions to help reduce health risks and promote healthy living. Not available 07/15/2020 18:49:35 Plan of Treatment Reminders Order Date Submit Date Provider Last Modified By Organization Details Last Modified Time Details Appointments None recorded. Lab hepatitis C virus Ab, serum 2019 020 [email or web address] [facility], [address], [place], [address], 0 09:10:32 TSH, serum or plasma 2019 020 [email or web address] [facility], [address], [place], [address], 0 09:10:33 lipid panel, serum 2019 020 [email or web address] [facility], [address], [place], [address], 0 09:10:33 CBC w/ auto diff 2019 020 [email or web address] [facility], [address], [place], [address], 0 09:10:33 CMP, serum or plasma 2019 020 [email or web address] [facility], [address], [place], [address], 0 09:10:33 TSH, serum or plasma 2017 018 [email or web address] [facility], [address], [place], [address], 8 08:46:09 lipid panel, serum 2017 018 [email or web address] [facility], [address], [place], [address], 8 08:46:08 CMP, serum or plasma 2017 018 [facility], [address], [place], [address], 8 08:46:08 CBC w/ auto diff 2017 018 [email or web address] [facility], [address], [place], [address], 8 08:46:09 lipid panel, serum 2016 017 [email or web address] [facility], [address], [place], [address], 7 08:45:48 CMP, serum or plasma 2016 017 [email or web address] [facility], [address], [place], [address], 7 08:45:48 CBC w/ auto diff 2016 017 [email or web address] [facility], [address], [place], [address], 7 08:45:48 Referral optometris t referral 2018 019 [email or web address] [facility], [address] [place] [address], [place], [address], 9 09:01:36 optometris t referral 2017 018 [email or web address] [facility], [facility] [address] [address], [place], [address], 8 08:23:48 optometris t referral 2016 017 [email or web address] [facility], [address] [place] [address], [place], [address], 7 08:53:57 Procedures None recorded. Surgeries None recorded. Imaging None recorded. Medication Orders Singulair 10 mg tablet 2016 017 INTERFACE [facility] [id number] [place] [address] [address] [address], [place], [address], 7 15:24:30 Zithromax Z-Jose Juan 250 mg tablet 2016 017 [email or web address] [facility] [id number] [address] [place] [address] [address] [address], [place], [address], 8 18:56:08 Patient TargetsNo targets recorded. Patient Instructions Encounter Date Encounter Id Patient Instructions Last Modified By Organization Details Last Modified Time 05/15/2017 [id number] Please consult our office promptly if you develop any of the following symptoms: 1. A fever of at least 101 F or 38.4 C 2. Throat pain that is severe or does not start to improve within 5 to 7 days Call for an ambulance or go to the emergency room if you: 1. Have trouble breathing 2. Cannot control your saliva (drooling) due to difficulty swallowing 3. Have swelling of the neck or tongue 4. Cannot move your neck or have trouble opening your mouth [email or web address] Not available 05/15/2017 14:38:04 06/21/2017 [id number] mammogram: about this test ROXIE Not available 06/23/2017 11:29:03 managing your allergies: care instructions ROXIE Not available 06/23/2017 11:29:12 seasonal allergies: care instructions ROXIE Not available 06/23/2017 11:29:13 07/11/2018 [id number] mammogram: about this test [email or web address] Not available 07/11/2018 19:01:38 managing your allergies: care instructions [email or web address] Not available 07/11/2018 19:01:38 seasonal allergies: care instructions [email or web address] Not available 07/11/2018 19:01:38 07/15/2019 [id number] mammogram: about this test [email or web address] Not available 07/15/2019 19:33:20 managing your allergies: care instructions [email or web address] Not available 07/15/2019 19:33:20 seasonal allergies: care instructions [facility] Not available 07/15/2019 19:33:20 medicare preventive services guide [facility] Not available 07/15/2019 19:33:20 advance care planning: care instructions [facility] Not available 07/15/2019 19:33:20 Discussed and explained advance directives such as standard forms to the patient. Face to face discussion lasted for a duration of __3_ minutes. [facility] Not available 07/15/2019 19:26:07 07/15/2020 [id number] mammogram: about this test [facility] Not available 07/15/2020 19:28:29 allergies: care instructions [facility] Not available 07/15/2020 19:28:29 managing your allergies: care instructions [facility] Not available 07/15/2020 19:28:29 medicare preventive services guide [facility] Not available 07/15/2020 19:28:29 advance care planning: care instructions [facility] Not available 07/15/2020 19:28:29 Discussed and explained advance directives such as standard forms to the patient. Face to face discussion lasted for a duration of _3__ minutes. [email or web address] Not available 07/15/2020 19:20:38 Reason for Referral [employer] Referral for Robbi lt health examination Referring Physician: Larry Galeano, Internal Medicine, Encounter Date: 06/21/2017 [employer] Referral for Robbi lt health examination Referring Physician: Larry Galeano, Internal Medicine, Encounter Date: 07/11/2018 [employer] Referral for Robbi lt health examination Referring Physician: Larry Galeano, Internal Medicine, Encounter Date: 07/15/2019 Results Created Date Observation Date Name Description Value Unit Range Abnormal Flag Note LastModifiedBy Organization Detail LastModifiedTime 06/11/20 19 06/11/2019 CBC w/ auto diff white blood cell count 4.1 thous and/u L 3.5-10 .0 Not Available [facility] [address] [place], [address], 06/12/2019 07:20:54 06/11/20 19 06/11/2019 CBC w/ auto diff red blood cell count 5.4 servando on/uL 3.5-5. 5 Not Available [place] [address] [address] [place], [address], 06/12/2019 07:20:54 06/11/20 19 06/11/2019 CBC w/ auto diff hemoglobin 16.6 g/dL 11.5-1 6.5 high Not Available [place] [address] [address] [place], [address], 06/12/2019 07:20:54 06/11/20 19 06/11/2019 CBC w/ auto diff hematocrit 51 % 35-55 Not Available [place] [address] [address] [place], [address], 06/12/2019 07:20:54 06/11/2006/11/2019 CBC w/ auto diff MCH 31 pg 25-35 Not Available [place] [address] [address] [place], [address], 06/12/2019 07:20:54 06/11/2006/11/2019 CBC w/ auto diff MCHC 32 g/dL 31-38 Not Available [place] [address] [address] [place], [address], 06/12/2019 07:20:54 06/11/2006/11/2019 CBC w/ auto diff MCV 95 fL 75-100 Not Available [place] [address] [address] [place], [address], 06/12/2019 07:20:54 06/11/2006/11/2019 CBC w/ auto diff RDW-CV 13 % 11-15 Not Available [place] [address] [place], [address], 06/12/2019 07:20:54 06/11/2006/11/2019 CBC w/ auto diff neutrophils% 51.6 % Not Available [address] [address] [place], [address], 06/12/2019 07:20:54 06/11/20 19 06/11/2019 CBC w/ auto diff lymphocytes% 35.7 % Not Available [place] [address] [address] [place], [address], 06/12/2019 07:20:54 06/11/20 19 06/11/2019 CBC w/ auto diff monocytes% 8.3 % Not Available [place] [address] [address] [place], [address], 06/12/2019 07:20:54 06/11/20 19 06/11/2019 CBC w/ auto diff eosinophil % 2.7 % 0.0-7. 0 Not Available [place] [address] [address] [place], [address], 06/12/2019 07:20:54 06/11/2006/11/2019 CBC w/ auto diff basophil % 1.5 % 0.0-3. 0 Not Available [place] [address] [place] [place], [address], 06/12/2019 07:20:54 06/11/2006/11/2019 CBC w/ auto diff absolute neutrophils 2.1 cells /uL 1.5-7. 8 Not Available [place] [address] [place], [address], 06/12/2019 07:20:54 06/11/2006/11/2019 CBC w/ auto diff absolute lymphocytes 1.47 cells /uL 0.85-3 .90 Not Available [facility] [address] [address] [place], [address], 06/12/2019 07:20:54 06/11/2006/11/2019 CBC w/ auto diff absolute monocytes 0.3 cells /uL 0.2-1. 0 Not Available [facility] [address] [address] [place], [address], 06/12/2019 07:20:54 06/11/2006/11/2019 CBC w/ auto diff absolute eosinophils 0.1 cells /uL 0.0-0. 5 Not Available [place] [address] [place], [address], 06/12/2019 07:20:54 06/11/2006/11/2019 CBC w/ auto diff absolute basophils 0.1 cells /uL 0.0-0. 2 Not Available [place] [address] [place], [address], 06/12/2019 07:20:54 06/11/2006/11/2019 CBC w/ auto diff platelet count 278 thous and/u L 100-40 0 Testi audra Perfo rmed at: [facility], [address] [address] [facility], [address] [place] [address] Phone : Fax: Not Available [address] [place], [address], 06/12/2019 07:20:54 06/11/2006/11/2019 CMP, serum or plasm a glucose 83 mg/dL 74-99 Not Available [place] [address] [place], [address], 06/12/2019 07:20:54 06/11/2006/11/2019 CMP, serum or plasm a urea nitrogen, blood (BUN) 11 mg/dL 6-20 Not Available [place] [address] [place], [address], 06/12/2019 07:20:54 06/11/2006/11/2019 CMP, serum or plasm a total bilirubin 1.9 mg/dL 0.0-1. 2 high Not Available [address] [place] [address] [place], [address], 06/12/2019 07:20:54 06/11/2006/11/2019 CMP, serum or plasm a total protein 6.0 g/dL 6.6-8. 7 low Not Available [place] [address] [place], [address], 06/12/2019 07:20:54 06/11/20 19 06/11/2019 CMP, serum or plasm a alanine aminotransfe rase (ALT) 14 U/L 0-33 Not Available [address] [place] [address] [place], [address], 06/12/2019 07:20:54 06/11/2006/11/2019 CMP, serum or plasm a alkaline phosphatase 36 U/L 40-130 low Not Available [place] [address] [place], [address], 06/12/2019 07:20:54 06/11/2006/11/2019 CMP, serum or plasm a aspartate aminotransfe rase (AST) 15 U/L 0-32 Not Available [address] [place] [address] [place], [address], 06/12/2019 07:20:54 06/11/2006/11/2019 CMP, serum or plasm a calcium 9.6 mg/dL 8.6-10 .2 Not Available [place] [address] [place], [address], 06/12/2019 07:20:54 06/11/2006/11/2019 CMP, serum or plasm a albumin 4.4 g/dL 3.5-5. 2 Not Available [address] [place] [address] [place], [address], 06/12/2019 07:20:54 06/11/2006/11/2019 CMP, serum or plasm a CO2 29 mmol/ L 22-29 Not Available [address] [address] [place], [address], 06/12/2019 07:20:54 06/11/2006/11/2019 CMP, serum or plasm a creatinine, serum 0.7 mg/dL 0.5-0. 9 Not Available [facility] [place] [address] [place], [address], 06/12/2019 07:20:54 06/11/2006/11/2019 CMP, serum or plasm a sodium, serum 144 mmol/ L 136-14 5 Not Available [facility] [place] [address] [address] [place], [address], 06/12/2019 07:20:54 06/11/2006/11/2019 CMP, serum or plasm a potassium, serum 4.3 mmol/ L 3.5-5. 1 Not Available [facility] [place] [address] [address] [place], [address], 06/12/2019 07:20:54 06/11/2006/11/2019 CMP, serum or plasm a chloride, serum 105 mmol/ L 98-107 Not Available [place] [address] [place], [address], 06/12/2019 07:20:54 06/11/2006/11/2019 CMP, serum or plasm a eGFR 100 >59 Persi stent reduc tion for 3 month s or more in an eGFR <60 mL/mi n/1.7 3 m2 defin es CKD. Patie nts with eGFR value s>/=6 0 mL/mi n/1.7 3 m2 may also have CKD if evide nce of persi stent protu nicarine a is prese nt. Addit ional infor татьяна francis may be found at www.k doqi. org. Not Available [facility] [place] [address] [place] [place], [address], 06/12/2019 07:20:54 06/11/2006/11/2019 lipid panel , serum trigylceride s 105 mg/dL 0-150 Not Available [facility] [place] [address] [place] [place], [address], 06/12/2019 07:20:55 06/11/2006/11/2019 lipid panel , serum cholesterol 190 mg/dL 0-200 Not Available [place] [address] [place], [address], 06/12/2019 07:20:55 06/11/2006/11/2019 lipid panel , serum uhdl 71 mg/dL 45-65 high Not Available [place] [address] [place], [address], 06/12/2019 07:20:55 06/11/2006/11/2019 lipid panel , serum LDL, calculated 98 mg/dL 0-100 Not Available [place] [address] [place], [address], 06/12/2019 07:20:55 06/11/2006/11/2019 lipid panel , serum LDL/HDL ratio 1 mg/dL 0-5 Not Available [place] [address] [place], [address], 06/12/2019 07:20:55 06/11/2006/11/2019 lipid panel , serum VLDL 21.0 mg/dL 5.0-40 .0 Not Available [place] [address] [place], [address], 06/12/2019 07:20:55 06/11/2006/11/2019 lipid panel , serum cholesterol/ HDL ratio 2.68 0.00-5 .00 Not Available [place] [address] [place], [address], 06/12/2019 07:20:55 06/11/2006/11/2019 TSH, serum or plasm a TSH 2.34 ??IU/ mL 0.27-4 .20 Not Available [place] [address] [place], [address], 06/12/2019 07:20:55 08/04/20 20 08/04/2020 CBC w/ auto diff white blood cell count 5.7 thous and/u L 3.5-10 .0 Not Available [place] [address] [address] [place], [address], 08/06/2020 11:39:20 08/04/2008/04/2020 CBC w/ auto diff red blood cell count 5.2 servando on/uL 3.5-5. 5 Not Available [place] [address] [address] [place], [address], 08/06/2020 11:39:20 08/04/20 20 08/04/2020 CBC w/ auto diff hemoglobin 16.4 g/dL 11.5-1 6.5 Not Available [place] [address] [address] [place], [address], 08/06/2020 11:39:20 08/04/2008/04/2020 CBC w/ auto diff hematocrit 51 % 35-55 Not Available [place] [address] [address] [place], [address], 08/06/2020 11:39:20 08/04/2008/04/2020 CBC w/ auto diff MCH 32 pg 25-35 Not Available [place] [address] [address] [place], [address], 08/06/2020 11:39:20 08/04/2008/04/2020 CBC w/ auto diff MCHC 33 g/dL 31-38 Not Available [place] [address] [address] [place], [address], 08/06/2020 11:39:20 08/04/2008/04/2020 CBC w/ auto diff MCV 97 fL 75-100 Not Available [place] [address] [place], [address], 08/06/2020 11:39:20 08/04/2008/04/2020 CBC w/ auto diff RDW-CV 13 % 11-15 Not Available [place] [address] [address] [place], [address], 08/06/2020 11:39:20 08/04/20 20 08/04/2020 CBC w/ auto diff neutrophils% 66.3 % Not Available [place] [address] [address] [place], [address], 08/06/2020 11:39:20 08/04/20 20 08/04/2020 CBC w/ auto diff lymphocytes% 24.0 % Not Available [place] [address] [address] [place], [address], 08/06/2020 11:39:20 08/04/20 20 08/04/2020 CBC w/ auto diff monocytes% 7.2 % Not Available [place] [address] [address] [place], [address], 08/06/2020 11:39:20 08/04/20 20 08/04/2020 CBC w/ auto diff eosinophil % 1.6 % 0.0-7. 0 Not Available [place] [address] [address] [place], [address], 08/06/2020 11:39:20 08/04/20 20 08/04/2020 CBC w/ auto diff basophil % 0.7 % 0.0-3. 0 Not Available [place] [address] [address] [place], [address], 08/06/2020 11:39:20 08/04/20 20 08/04/2020 CBC w/ auto diff absolute neutrophils 3.8 cells /uL 1.5-7. 8 Not Available [place] [address] [address] [place], [address], 08/06/2020 11:39:20 08/04/20 20 08/04/2020 CBC w/ auto diff absolute lymphocytes 1.37 cells /uL 0.85-3 .90 Not Available [place] [address] [address] [place], [address], 08/06/2020 11:39:20 08/04/20 20 08/04/2020 CBC w/ auto diff absolute monocytes 0.4 cells /uL 0.2-1. 0 Not Available [place] [address] [place], [address], 08/06/2020 11:39:20 08/04/20 20 08/04/2020 CBC w/ auto diff absolute eosinophils 0.1 cells /uL 0.0-0. 5 Not Available [place] [address] [place], [address], 08/06/2020 11:39:20 08/04/20 20 08/04/2020 CBC w/ auto diff absolute basophils 0.0 cells /uL 0.0-0. 2 Not Available [place] [address] [place], [address], 08/06/2020 11:39:20 08/04/2008/04/2020 CBC w/ auto diff platelet count 307 thous and/u L 100-40 0 Testi ng Perfo rmed at: [facility] [address] [place] [address], [address] [place] [address] Phone : Fax: Not Available [place] [address] [place], [address], 08/06/2020 11:39:20 08/04/2008/04/2020 CMP, serum or plasm a glucose 77 mg/dL 74-99 Not Available [place] [address] [place], [address], 08/06/2020 11:39:21 08/04/2008/04/2020 CMP, serum or plasm a urea nitrogen, blood (BUN) 10 mg/dL 6-20 Not Available [place] [address] [place], [address], 08/06/2020 11:39:21 08/04/20 20 08/04/2020 CMP, serum or plasm a total bilirubin 1.8 mg/dL 0.0-1. 2 high Not Available [place] [address] [place], [address], 08/06/2020 11:39:21 08/04/2008/04/2020 CMP, serum or plasm a total protein 6.9 g/dL 6.6-8. 7 Not Available [facility] [place] [address] [place], [address], 08/06/2020 11:39:21 08/04/2008/04/2020 CMP, serum or plasm a alanine aminotransfe rase (ALT) 14 U/L 0-33 Not Available [facility] [place] [address] [place], [address], 08/06/2020 11:39:21 08/04/2008/04/2020 CMP, serum or plasm a alkaline phosphatase 45 U/L 40-130 Not Available [facility] [place] [address] [place], [address], 08/06/2020 11:39:21 08/04/2008/04/2020 CMP, serum or plasm a aspartate aminotransfe rase (AST) 18 U/L 0-32 Not Available [facility] [place] [address] [address], [place], [address], 08/06/2020 11:39:21 08/04/2008/04/2020 CMP, serum or plasm a calcium 9.8 mg/dL 8.6-10 .2 Not Available [facility] [place] [address] [place], [address], 08/06/2020 11:39:21 08/04/2008/04/2020 CMP, serum or plasm a albumin 4.8 g/dL 3.5-5. 2 Not Available [facility] [place] [address] [place], [address], 08/06/2020 11:39:21 08/04/2008/04/2020 CMP, serum or plasm a CO2 29 mmol/ L 22-29 Not Available [facility] [place] [address] [address] [place], [address], 08/06/2020 11:39:21 08/04/2008/04/2020 CMP, serum or plasm a creatinine, serum 0.7 mg/dL 0.5-0. 9 Not Available [facility] [place] [address] [place] [place], [address], 08/06/2020 11:39:21 08/04/2008/04/2020 CMP, serum or plasm a sodium, serum 139 mmol/ L 136-14 5 Not Available [facility] [place] [address] [place] [place], [address], 08/06/2020 11:39:21 08/04/2008/04/2020 CMP, serum or plasm a potassium, serum 4.5 mmol/ L 3.5-5. 1 Not Available [facility] [place] [address] [address] [place], [address], 08/06/2020 11:39:21 08/04/2008/04/2020 CMP, serum or plasm a chloride, serum 99 mmol/ L 98-107 Not Available [facility] [place] [address] [address] [place], [address], 08/06/2020 11:39:21 08/04/2008/04/2020 CMP, serum or plasm a eGFR 95 >59 Persi stent reduc tion for 3 month s or more in an eGFR <60 mL/mi n/1.7 3 m2 defin es CKD. Patie nts with eGFR value s>/=6 0 mL/mi n/1.7 3 m2 may also have CKD if evide nce of persi stent protu nicarine a is prese nt. Addit ional infor татьяна francis may be found at www.k doqi. org. Not Available [facility] [place] [address] [address] [place], [address], 08/06/2020 11:39:21 08/04/2008/04/2020 hepat itis C refle x quant itati ve RNA, PCR hepatitis C antibody Negati ve negati ve Not Available [facility] [place] [address] [place], [address], 08/06/2020 11:39:21 08/04/20 20 08/04/2020 lipid panel , serum trigylceride s 94 mg/dL 0-150 Not Available [facility] [place] [address] [place] [address] [place], [address], 08/06/2020 11:39:22 08/04/20 20 08/04/2020 lipid panel , serum cholesterol 201 mg/dL 0-200 high Not Available [facility] [place] [address] [place], [address], 08/06/2020 11:39:22 08/04/2008/04/2020 lipid panel , serum uhdl 72 mg/dL 45-65 high Not Available [facility] [place] [address] [place] [address] [place], [address], 08/06/2020 11:39:22 08/04/20 20 08/04/2020 lipid panel , serum LDL, calculated 110 mg/dL 0-100 high Not Available [facility] [place] [address] [address], [place], [address], 08/06/2020 11:39:22 08/04/2008/04/2020 lipid panel , serum LDL/HDL ratio 2 mg/dL 0-5 Not Available [facility] [place] [address] [place] [address], [address], 08/06/2020 11:39:22 08/04/2008/04/2020 lipid panel , serum VLDL 18.8 mg/dL 5.0-40 .0 Not Available [facility] [place] [address] [address] [place], [address], 08/06/2020 11:39:22 08/04/20 20 08/04/2020 lipid panel , serum cholesterol/ HDL ratio 2.79 0.00-5 .00 Not Available [facility] [place] [address] [place], [address], 08/06/2020 11:39:22 08/04/20 20 08/04/2020 TSH, serum or plasm a TSH 2.31 ??IU/ mL 0.27-4 .20 Not Available [place] [address] [place], [address], 08/06/2020 11:39:22 04/19/20 17 04/19/2017 MAMMO , scree ryan, digit al, bilat eral No observ ation record ed. [facility] Not Available 2016 18:00:48 04/20/20 18 04/20/2018 MAMMO , scree ryan, digit al, bilat eral No observ ation record ed. [facility] Not Available 2017 18:58:01 05/25/20 20 05/25/2020 MAMMO , scree ryan, digit al, bilat eral No observ ation record ed. [email or web address] Not Available 2019 12:58:14 06/28/20 21 06/28/2021 MAMMO , scree ryan, digit al, bilat eral No observ ation record ed. [place] [id number] [facility] Office [facility], [facility] [address], [place], [address], 07/12/2021 08:20:22 Result Notes None recorded. Problems Name Problem SNOMED Code Status Onset Date Resolution Date Notes Provider Name and Address Organization Details Recorded Time Allergic rhinitis [id number] Active [facility] Available [facility] 12:05[facility]18 Problem Notes None recorded. Procedures Surgical History Date Name Laterality Status Provider Name and Address Organization Details Recorded Time 0 Date of Last Mammogram completed MILLA CALLOWAY [facility] 07/15/2020 18:50:23 9 Date of Last Pap Smear completed MILLA CALLOWAY [facility] 07/15/2020 18:50:28 2 Colonoscopy completed Izzy Nicole [facility] 06/20/2016 08:27:41 Imaging Results None recorded. Procedure Notes None recorded. Medical Equipment None Reported. Allergies No known drug allergies Medications Name Sig Start Date Stop Date Status Note LastModified by Organization Details LastModified Time azithromyci n 250 mg tablet TAKE 2 TABLETS (500 MG) BY ORAL ROUTE ONCE DAILY FOR 1 DAY THEN 1 TABLET (250 MG) BY ORAL ROUTE ONCE DAILY FOR 4 DAYS active Not Available Not Available No t Available valacyclovi r 1 gram tablet active Not Available Not Available Not Available Claritin 10 mg tablet Take 1 tablet every day by oral route. active Not Available Not Available No t Available prednisone 20 mg tablet Take 1 tablet every day by oral route. 07/15 completed Not Available Not Available Not Available spironolact one 100 mg tablet TAKE 1 TABLET BY MOUTH EVERY DAY active Not Available Not Available No t Available triamcinolo ne acetonide 0.1 % topical cream APPLY A THIN LAYER TO THE AFFECTED AREA(S) BY TOPICAL ROUTE 2 TIMES PER DAY 2017 active Not Available Not Available Not Avai lable montelukast 10 mg tablet Take 1 tablet every day by oral route. active Not Available Not Available No t Available levofloxaci n 500 mg tablet 05/15 completed Not Available Not Available Not Available hydrocortis one 2.5 % topical ointment active Not Available Not Available Not Available fluticasone propionate 50 mcg/actuati on nasal spray,suspe nsion SPRAY 2 SPRAYS INTO EACH NOSTRIL EVERY DAY active Not Available Not Available No t Available amoxicillin 875 mg-potassiu m clavulanate 125 mg tablet 07/15 completed Not Available Not Available Not Available neomycin 3.5 mg/g-polymy elvia B 10,000 unit/g-dexa meth 0.1 % eye oint active Not Available Not Available Not Available Mucinex DM 30 mg-600 mg tablet,exte nded release 12 hr Take 1 tablet every 12 hours by oral route. 06/21 completed Not Available Not Available Not Available Zylet 0.3 %-0.5 % eye drops,suspe nsion 06/21 completed Not Available Not Available Not Available olopatadine 0.6 % nasal spray USE 2 SPRAYS IN EACH NOSTRIL EVERY DAY NEEDED active Not Available Not Available No t Available Patanase 2 in each nare 06/21 completed Not Available Not Available Not Available Dymista 137 mcg-50 mcg/spray nasal spray 05/15 completed Not Available Not Available Not Available Caltrate plus D 600 mg (carbonate) -20 mcg (800 unit) chewable tablet Take 1 tablet twice a day by oral route. 2015 active Not Available Not Available Not Avai lable Pazeo 0.7 % eye drops active Not Available Not Available No t Available Fluvirin 45 mcg (15 mcg x 3)/0.5 mL intramuscul ar suspension 06/21 completed Not Available Not Available Not Available Fluvirin 45 mcg (15 mcg x 3)/0.5 mL intramuscul ar suspension 06/21 completed Not Available Not Available Not Available Fluarix Quad 0525-1993 (PF) 60 mcg (15 mcg x 4)/0.5 mL IM syringe 07/11 completed Not Available Not Available Not Available Fluzone Quad 60 mcg (15 mcg x 4)/0.5 mL intramuscul ar susp. active Not Available Not Available Not Available Vitals Date Recorded Body height Heart rate Respiratory rate Body temperature Body mass index (BMI) Body weight Systolic And Diastolic Provider Name and Address Organization Details Last Updated DateTime 7 162.56 cm 81 /min 18 /min 97.2 [degF] 19.6 kg/m2 62595.5 3 g 105/70 mm[Hg] Sangeeta Silva [facility] 7 14:39:50 Date Recorded Body height Body mass index (BMI) Body weight Respiratory rate Body temperature Heart rate Systolic And Diastolic Provider Name and Address Organization Details Last Updated DateTime 7 162.56 cm 19.1 kg/m2 76282.7 5 g 18 /min 97.1 [degF] 77 /min 116/77 mm[Hg] [facility] 7 10:47:56 Date Recorded Respiratory rate Body height Body mass index (BMI) Body weight Body temperature Heart rate Systolic And Diastolic Provider Name and Address Organization Details Last Updated DateTime 8 18 /min 162.56 cm 19.7 kg/m2 88800.1 2 g 98.5 [degF] 70 /min 112/67 mm[Hg] [facility] 8 18:38:13 Date Recorded Heart rate Systolic And Diastolic Provider Name and Address Organization Details Last Updated DateTime 07/15/2019 68 /min 122/70 mm[Hg] Larry Galeano MD [address], [place], [address] 07/15/2019 19:30:35 Date Recorded Respiratory rate Body temperature Body height Body mass index (BMI) Body weight Provider Name and Address Organization Details Last Updated DateTime 9 18 /min 97.4 [degF] 162.56 cm 19.6 kg/m2 05476.5 3 g Goyo Albertokenyettamasoud [facility] 9 18:46:59 Date Recorded Body mass index (BMI) Body height Provider Name and Address Organization Details Last Updated DateTime 07/15/2020 19.7 kg/m2 162.56 cm Larry Galeano MD [address], [place], [address] 07/15/2020 19:22:27 Date Recorded Heart rate Respiratory rate Body temperature Body weight Systolic And Diastolic Provider Name and Address Organization Details Last Updated DateTime 0 74 /min 16 /min 98.2 [degF] 42441.1 2 g 106/71 mm[Hg] MILLA CALLOWAY [facility] 0 18:49:48 Social History Question Answer Notes LastModified by Organizat ion Details LastModified Time Tobacco Smoking Status Never [facility]/2016 08:27:22 Do You Have An Advance Directive? No [email or web address] Information n ot available 07/11/2018 In The 14 Days Before Symptom Onset, Have You Had Close Contact With A Laboratory-confirm ed COVID-19 While That Case Was Ill? No Information n ot available 07/15/2020 In The 14 Days Before Symptom Onset, Have You Had Close Contact With A Person Who Is Under Investigation For COVID-19 While That Person Was Ill? No Information not available 07/15/2020 Have You Been To An Area Known To Be High Risk For COVID-19? No Information not available 07/15/2020 Live Alone Or With Others? With Others [email or web address] Information not available 06/20/2016 What Was The Date Of Your Most Recent Tobacco Screening? 07/11/2018 Information not available 06/12/2019 Sex: Unknown Functional Status Question Answer Note LastModified by Organization D etails LastModified Time What is your level of alcohol consumption? None [email or web address] Information not available 06/20/2016 Mental Status None recorded. Family History Relationship Description Onset Age of this Age Resolved Age Notes LastModified by Organization Details LastModified Time Father Myocardial infarction [email or web address] Not available 06/20 08:27:54 Father Essential hypertension Not available 11/2015 08:28:06 Father Diabetes mellitus [email or web address] Not available 2015 08:28:14 Mother Malignant lymphoma Not available 2015 08:28:27 Medical History Condition Response Coronary Artery Disease N Other N Gout N Kidney Stones N Blood Diseases N Hyperthyroidism N Breast Cancer N Blood Transfusion N Hypothyroidism N Lung Disease N COPD N Depression N Defects or Inherited Disease N Developmental or Behavioral Disorders N Breast Problem N Difficulty Swallowing N Anesthesia Complications N Meniere's disease N Anxiety Disorder N Muscle, Joint, or Bone Problems N Obesity N Vision or Eye Problems N Arthritis N Polyps N Infertility N Mental Disorder N Cancer N Varicosities N Stroke N Endometriosis N Bladder or Kidney Problems N High Cholesterol N Liver Disease N Headaches N Fibromyalgia N Kidney Disease N Allergies/Hayfever N Heart Problems N Ear or Hearing Problems N Hospitalizations N Thyroid Problems N GI Problems N ADD/ADHD N Skin Problems N Eating Disorder N Anemia N MRSA exposure N Constipation N Mental Illness N Ovarian Cancer N Diabetes N Bedwetting N Seizures/Epilepsy N Tuberculosis N AIDS/HIV N Congestive Heart Failure (CHF) N Eczema N Diverticulitis N Abuse/Domestic Violence N Asthma N Reflux/GERD N Hepatitis N Heart Disease N Pulmonary Embolism N Chronic Ear Infections N Pre-Eclampsia N Hypertension N Chicken Pox N Autism Spectrum Disorder (ASD) N Osteoporosis N Thrombophilias N Gynecological History Statement/Question Response Date of Last Pap Smear 06/22/2019 Date of Last Mammogram 05/20/2020 Obstetrics History GPAL:G 0 P 0 0 0 0 Immunizations Vaccine Type Date Status Note Provider Nam e and Address Organization Details Recorded Time Influenza, split virus, quadrivalent, preservative 8 completed Not Available [facility] 12/21/2019 02:15:42 Td, adsorbed, preservative free, adult use, Lf unspecified 8 completed Larry Galeano MD [address], [place], [address], [facility] 07/15/2019 19:26:48 Influenza, split virus, quadrivalent, preservative 9 completed Hilda michel, [facility] 09/02/2019 09:57:39 Influenza, split virus, quadrivalent, preservative 5 completed Izzy michel, [facility] 06/20/2016 09:17:37 Influenza, split virus, quadrivalent, preservative 0 completed Larry Galeano MD [address], [place], [address], [facility] 09/06/2020 21:43:27 Influenza, split virus, quadrivalent, preservative 7 completed Not Available [facility] 12/21/2019 02:15:41 Past Encounters Encounter ID Performer Location Encounter Start Date Encounter Closed Date Diagnosis/Indication Diagnosis SNOMED-CT Code Diagnosis ICD10 Code Diagnosis Note [id number] Larry Galeano MD [facility], [facility] [address] [place] [address] 06/20/2016 09:12:11 06/20/2016 10:05:58 Adult health examination 953654326 Z00.00 Allergic rhinitis 276282 04 J30.1 sees allergy every 6 months Active or passive immunization 338563133 Z23 [id number] NLELA PITTS APN [facility], [facility] [address] [place] [address] 05/15/2017 14:31:27 05/15/2017 15:28:39 Allergic rhinitis 53545553 J30.9 receives allergy injections every two weekshas been taking FLonase and claritin daily with no reliefdeni es fever, chills, or sweats [id number] Larry Galeano MD [facility], [facility] [address] [place] [address] 06/21/2017 10:43:40 06/21/2017 11:25:49 Adult health examination 749542782 Z00.00 Allergic r hinitis caused by pollen 42371935 J30.1 sees allergy on reg basis for allergy shot Acne 53841463 L70.9 see derm yearly on spironolac tone Screening mammography 24 489246 Z12.31 had mammogram 03/2017 Screening for malignant neoplasm of cervix 991644476 Z12.4 sees BI ARCHITECT every year , last visit 10/2016 Active or passive immunization 745095814 Z23 [id number] Larry Galeano MD [employer], [facility] [address] [place] [address] 07/11/2018 18:26:53 07/11/2018 19:07:05 Adult health examination 655209189 Z00.00 Allergic r hinitis caused by pollen 69266449 J30.1 sees allergy on reg basis for allergy shot Acne 92758490 L70.9 see derm yearly on spironolac tone Screening mammography 24 279193 Z12.31 had mammogram 04/20/2018 Screening for malignant neoplasm of cervix 810817106 Z12.4 sees BI ARCHITECT every year , last visit 10/2017 Active or passive immunization 363161761 Z23 [id number] Larry Galeano MD [employer], [facility] [address] [place] [address] 07/15/2019 18:30:21 07/15/2019 19:35:03 Adult health examination 675436031 Z00.00 Allergic r hinitis caused by pollen 76827075 J30.1 sees allergy on reg basis for allergy shot Acne 46722498 L70.9 see derm yearly on spironolac tone Screening mammography 24 162455 Z12.31 had mammogram 04/2019 Screening for malignant neoplasm of cervix 805425853 Z12.4 sees BI ARCHITECT every year , last visit 04/2019 Active or passive immunization 515131989 Z23 up to date [id number] Larry Galeano MD [employer], [facility] [address] [place] [address] 07/15/2020 18:29:19 07/15/2020 19:33:46 Adult health examination 797849549 Z00.01 per Pt had optometry 01/2020 Allergic rhinitis 299719 04 J30.1 sees allergy every 6 months Body mass index less than 20 498505350 Z68.1 Screening mammography 24 419968 Z12.31 had mammogram 05/25/2020 Screening for malignant neoplasm of cervix 350291411 Z12.4 sees BI ARCHITECT every year , last visit 04/2019 Active or passive immunization 330557906 Z23 up to date Viral screening 89163722 4 Z11.59 Health Concerns Section Related Observation LastModified by Organization Detai ls LastModified Time None Recorded Concern Status LastModified by Organization Details LastModified Time None Recorded Advance Directives Directive N: Payers Insurance Date Sequence Insurance Name Policy Number Policy Adams Covered Member ID Adams Member ID Guarantor Name 07/16/2021 1 [employer] [id number] Lindsay Caputo [id number] Lindsay Caputo Notes Date Note Type Note Provider Name and Address Organization Details Recorded Time 05/15/2017 text/html Sore ThroatRepor yumiko by Patient sinus congestion, facial pain, post nasal drip, FLORES, ear fullness, eyes glassy, sore throat, and dry cough for most of the month.Allergy shots every 2 weeksalready taking flonase NELLA PITTS APN [address] [facility] [address], [place], [address], [facility] 05/15/2017 17:57:50 06/21/2017 text/html Hypertension F/UReported by PatientHPIFor medications, patient reportstaking medications as directedandno side effects from medication. For lifestyle, patient reportsregular exercise,limiting/avoi ding salt, andcompliant with low salt diet. For associated symptoms, patient reportsno dizziness,no lightheadedness,no chest pain,no shortness of breath,no palpitations,no edema,no calf pain with exertion, andno headache. her for physical Larry Galeano MD [address], [place], [address], [facility] 06/21/2017 11:20:33 07/11/2018 text/html Medicare Annual Wellness VisitReported by PatientSocial/Behavior al HistoryFor diet and nutrition, patient reportshealthy diet. For fracture risk, patient reportsno history of fractures,no recent explained fracture,no sudden unexplained fractures, andno previous musculoskeletal injuries. For physical activity, patient reportsexercises on a regular basis,recent increase in physical activity, andgood physical condition.Mental Status:For depression risk, patient reportsnever feels sad, empty, or tearful,no loss of interest in activities,no significant changes in weight,no sleep disturbances or insomnia,no agitation,no loss of energy,no feelings of worthlessness or guilt,no thoughts of suicide,no history of depression, andno history of mood disorders. For orientation, patient reportsno disorientation to time,no disorientation to date, andno disorientation to place. For concentration and memory, patient reportsno decreased concentrating ability,no memory lapses or loss, anddoes not forget words. For speech/motor difficulties, patient reportsno speech difficulties,no difficulty expressing formulated concepts,no difficulty with fine manipulative tasks,no difficulty writing/copying,no slowed reaction time, anddoes not knock things over when trying to pick them up.Functional AbilityFor hearing, patient reportsno loss of hearing. For vision, patient reportsno vision problems. For activities of daily living, patient reportsable to bathe with limited or no assistance,able to contol urination and bowels,able to dress with limited or no assistance,able to feed self with limited or no assistance,able to get out of chair or bed with limited or no assistance,able to groom with limited or no assistance, andable to toilet with limited or no assistance. For instrumental activities of daily living, patient reportsable to do house work with limited or no assistance,able to grocery shop with limited or no assistance,able to manage medications with limited or no assistance,able to manage money with limited or no assistance,able to prepare meals with limited or no assistance, andable to use the phone with limited or no assistance. For falls risk assessment, patient reportsno frequent falls while walking,no fall in the past year, andno dizziness/vertigo. For home safety, patient reportsno vision or hearing loss while driving. Hypertension F/UReported by PatientHPIFor medications, patient reportstaking medications as directedandno side effects from medication. For lifestyle, patient reportsregular exercise,limiting/avoi ding salt, andcompliant with low salt diet. For associated symptoms, patient reportsno dizziness,no lightheadedness,no chest pain,no shortness of breath,no palpitations,no edema,no calf pain with exertion, andno headache. Larry Galeano MD [address] [place] [address] [address], [place], [address], [facility] 07/11/2018 19:05:52 07/15/2019 text/html Medicare Annual Wellness VisitReported by PatientSocial/Behavior al HistoryFor diet and nutrition, patient reportshealthy diet. For fracture risk, patient reportsno history of fractures,no recent explained fracture,no sudden unexplained fractures, andno previous musculoskeletal injuries. For physical activity, patient reportsexercises on a regular basis,recent increase in physical activity,good physical condition, anddiscussed exercise habits.Mental Status:For depression risk, patient reportsnever feels sad, empty, or tearful,no loss of interest in activities,no significant changes in weight,no sleep disturbances or insomnia,no agitation,no loss of energy,no feelings of worthlessness or guilt,no thoughts of suicide,no history of depression, andno history of mood disorders. For orientation, patient reportsno disorientation to time,no disorientation to date, andno disorientation to place. For concentration and memory, patient reportsno decreased concentrating ability,no memory lapses or loss, anddoes not forget words. For speech/motor difficulties, patient reportsno speech difficulties,no difficulty expressing formulated concepts,no difficulty with fine manipulative tasks,no difficulty writing/copying,no slowed reaction time, anddoes not knock things over when trying to pick them up.Functional AbilityFor hearing, patient reportsno loss of hearing. For vision, patient reportsno vision problems. For activities of daily living, patient reportsable to bathe with limited or no assistance,able to contol urination and bowels,able to dress with limited or no assistance,able to feed self with limited or no assistance,able to get out of chair or bed with limited or no assistance,able to groom with limited or no assistance, andable to toilet with limited or no assistance. For instrumental activities of daily living, patient reportsable to do house work with limited or no assistance,able to grocery shop with limited or no assistance,able to manage medications with limited or no assistance,able to manage money with limited or no assistance,able to prepare meals with limited or no assistance, andable to use the phone with limited or no assistance. For falls risk assessment, patient reportsno frequent falls while walking,no fall in the past year, andno dizziness/vertigo. For home safety, patient reportsno vision or hearing loss while driving. Hypertension F/UReported by PatientHPIFor medications, patient reportstaking medications as directedandno side effects from medication. For lifestyle, patient reportsregular exercise,limiting/avoi ding salt, andcompliant with low salt diet. For associated symptoms, patient reportsno dizziness,no lightheadedness,no chest pain,no shortness of breath,no palpitations,no edema,no calf pain with exertion, andno headache. Larry Galeano MD [address] [place] [address], [place], [address], [facility] 07/15/2019 19:33:59 07/15/2020 text/html Medicare Annual Wellness VisitReported by PatientSocial/Behavior al HistoryFor diet and nutrition, patient reportshealthy diet. For fracture risk, patient reportsno history of fractures,no recent explained fracture,no sudden unexplained fractures, andno previous musculoskeletal injuries. For physical activity, patient reportsexercises on a regular basis,recent increase in physical activity, andgood physical condition.Mental Status:For depression risk, patient reportsnever feels sad, empty, or tearful,no loss of interest in activities,no significant changes in weight,no sleep disturbances or insomnia,no agitation,no loss of energy,no feelings of worthlessness or guilt,no thoughts of suicide,no history of depression, andno history of mood disorders. For orientation, patient reportsno disorientation to time,no disorientation to date, andno disorientation to place. For concentration and memory, patient reportsno decreased concentrating ability,no memory lapses or loss, anddoes not forget words. For speech/motor difficulties, patient reportsno speech difficulties,no difficulty expressing formulated concepts,no difficulty with fine manipulative tasks,no difficulty writing/copying,no slowed reaction time, anddoes not knock things over when trying to pick them up.Functional AbilityFor hearing, patient reportsno loss of hearing. For vision, patient reportsno vision problems. For falls risk assessment, patient reportsno frequent falls while walking,no fall in the past year, andno dizziness/vertigo. For home safety, patient reportsuse of seatbeltsandno vision or hearing loss while driving. Hypertension F/UReported by PatientHPIFor medications, patient reportstaking medications as directedandno side effects from medication. For lifestyle, patient reportsregular exercise,limiting/avoi ding salt, andcompliant with low salt diet. For associated symptoms, patient reportsno dizziness,no lightheadedness,no chest pain,no shortness of breath,no palpitations,no edema,no calf pain with exertion, andno headache. Larry Galeano MD [address] [place] [address] [address], [place], [address], [facility] 07/15/2020 19:28:56 OBGyn Episode No OBEpisode recorded.
--- OUTSIDE RECORDS SUMMARY | 2025-06-11 08:29 | XMS_ITS | Patient Health Record ---
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 Name Role Phone Froylan HARPER, Larry Primary Care Provider Richard Baez Unavailable [phone] Kenn Peacock MD Unavailable Unavailable Sidra Molina Unavailable [phone] Allergies No Known Allergies Reason For Referral No Information Medications Medication SIG (Take, Route, Frequency, Duration) Notes Start Date End Date Status Azelastine HCl 137 MCG/SPRAY 2 sprays in each nostril Nasally Twice a day; Duration: 30 days 05/30/2024 Active Fluticasone Propionate 50 MCG/ACT 1 spray(s) in each nostril twice a day; Duration: 30 days Active Montelukast Sodium 10 MG 1 tab(s) orally once a day; Duration: 30 day(s) 02/15/2023 Active PAZEO 0.7% 1 gtt in each affected eye once a day Active Ipratropium [place] 0.06 % 2 spray(s) intranasally 3 times a day; Duration: 30 days 12/07/2023 Active Flonase Allergy Relief 50 MCG/ACT 2 spray(s) in each nostril once a day; Duration: 30 days Active FLUTICASONE NASAL 50 mcg/inh 1 spray(s) in each nostril twice a day; Duration: 30 days Active Fexofenadine HCl 180 MG 1 tablet Orally Once a day; Duration: 90 days 05/30/2024 Active Levocetirizine Dihydrochloride 5 MG 1 tab(s) orally once a day; Duration: 30 days 12/07/2023 Active Azelastine HCl 137 MCG/SPRAY 2 spray(s) intranasally 2 times a day; Duration: 30 days Active EPINEPHrine 0.3 MG 0.3 MG INTRAMUSCULARLY ONCE; Duration: 1 DOSE(S) *Please review and pick correct strength-formulat ion from [employer] options. If intended option is not shown, discontinue and re-order from Quick Search* Active Patanase 665 MCG/INH 2 SPRAY(S) INTRANASALLY QDAY, PRN; Duration: 30 DAY(S) *Please review and pick correct strength-formulat ion from [employer] options. If intended option is not shown, discontinue and re-order from Quick Search* Active Spironolactone 100 MG 1 tab(s) orally on ce a day; Duration: 30 day(s) Active Immunizations Vaccine Route Administration Date Status Comme nts Covid 19 (Pfizer) Unknown 12/22/2020 Administered Covid 19 (Pfizer) Unknown 01/12/2021 Administered Fluzone Quadrivalent Unknown 08/30/2017 Administered Fluzone, quadrivalent, prese rvative free Unknown 08/30/2021 Administered Influenza Unknown 08/04/2014 Administered Social History Tobacco Use: Social History Observation Description Date Details (start date - stop date) Never Smoker NA - NA Smoking Smart Form: Question Answer Notes Are you a: never smoker Tobacco Control (Standard) Question Answer Notes Tobacco use: Nonsmoker Problems Problem Type SNOMED Code ICD Code Onset Dates Problem Status W/U Status Risk Notes Problem Chronic allergic conjunctivitis (91106836) Other chronic allergic conjunctivitis (H10.45) Active confirmed Problem Allergic rhinitis caused by pollen (disorder) (14997339) Allergic rhinitis due to pollen (J30.1) Active confirmed Problem Allergic rhinitis caused by animal hair and dander (662407880085144) Allergic rhinitis due to animal (cat) (dog) hair and dander (J30.81) Active confirmed Problem Allergic rhinitis (08319921) Other allergic rhinitis (J30.89) Active confirmed Problem Cough (09805141) Cough (R05) Active confirmed Plan Of Treatment No Information Insurance Providers Payer Name Payer Address Payer Phone Subscriber Number Group Number Insured Name Patient Relationship to Insured Coverage Start Date Coverage End Date [facility] [address] [place] [address] [id number] Lindsay Caputo Self - patient is the insured Medical (General) History Medical History History ICD Code Allergic rhinitis due to pollen Allergic rhinitis due to animal (cat) (d og) hair and dander Other allergic rhinitis Other chronic allergic conjunctivitis Cough Surgical History Surgery Date(Month/Year)
--- OUTSIDE RECORDS SUMMARY | 2025-06-11 08:29 | XMS_ITS | Patient Health Record ---
Author Organization [facility] Address [address] [place], [place] [id number] Care Team Providers Care Certified Pharmacist Assistant Name Role Phone BILL Scott Unavailable [phone] Larry Galeano Unavailable Unavailable Reason For Referral No Information Medications Medication SIG (Take, Route, Frequency, Duration) Notes Start Date End Date Status Medrol Dosepak ORAL Medrol DosepakOr iginal MedicationMedrol Dosepak *Reorder from TasteBook for eRx and Interaction Alerts* 06/22/2022 Active Plan Of Treatment No Information Insurance Providers Payer Name Payer Address Payer Phone Subscriber Number Group Number Insured Name Patient Relationship to Insured Coverage Start Date Coverage End Date [facility] ([facility]) ATTN CLAIMS [address] [place] [address] [id number] SHANITA PALMER Self - patient is the insured
--- OUTSIDE RECORDS SUMMARY | 2025-06-11 08:29 | XMS_ITS ---
Author Organization [facility] ([address]) Address [address] [place] [address] Care Team Providers Care Shirt Sewer Name Role Phone Froylan HARPER, Larry Primary Care Provider Richard Baez Unavailable [phone] Madonna HARPER, Kenn Unavailable Unavailable Sidra Molina [phone] REASON FOR VISIT ARC follow-up Encounters Encounter Location Date Provider Diagnosis [address] [address] 01/16/2025 Sidra Molina Plan Of Treatment No Information Progress Notes * Lindsay PALMER RDOB: [birth year] (50 yo F)Acc No.[id number]:01/16/2025 Progress Notes Patient: Leena RAGLAND Lindsay Meir Provider: Shalom Molina DNP ROTOR CASTING MACHINE OPERATOR-C :1975 A ge:49 Y S ex:Female Date:01/16/2025 Address:[facility] [facility] Pcp:Larry Galeano MD Subjective: * Chief Complaints: * 1 . ARC follow-up. * Medical History: Objective: * Vitals: Assessment: Plan: * Treatment: * Billing Information: * Visit Code: * Procedure Codes: * Electronic signature of Sidra Molina DNP, FNP-C on 06/11/2025 at 08:28 AM CDT Sign off status: Pending * Provider: PRADEEP Castaneda Date: 0 01/16/2025 Generated for Brad zhu/Lakisha/Mario on: 0 06/11/2025 08:28 AM CDT
--- OUTSIDE RECORDS SUMMARY | 2025-06-11 08:29 | XMS_ITS ---
Author Organization [facility] [place] ([address]) Address [address] [place] [address] Care Team Providers Care Fern Picker Name Role Phone Froylan HARPER, Larry Primary Care Provider Richard Baez Unavailable [phone] Madonna HARPER, Kenn Unavailable Unavailable Sidra Molina [phone] REASON FOR VISIT ARC follow-up Encounters Encounter Location Date Provider Diagnosis [address] [address] 05/22/2025 Sidra Molina Plan Of Treatment No Information Progress Notes * Lindsay PALMER RDOB: [birth year] (50 yo F)Acc No.[id number]:05/22/2025 Progress Notes Patient: Leena RAGLAND Lindsay Meir Provider: Shalom Molina DNP CYBER SECURITY ANALYST-C :1975 A ge:50 Y S ex:Female Date:05/22/2025 Address:[facility] Pcp:Larry Galeano MD Subjective: * Chief Complaints: * 1 . ARC follow-up. * Medical History: Objective: * Vitals: Assessment: Plan: * Treatment: * Billing Information: * Visit Code: * Procedure Codes: * Electronic signature of Sidra Molina DNP, FNP-C on 06/11/2025 at 08:29 AM CDT Sign off status: Pending * Provider: PRADEEP Castaneda Date: 05/22/2025 Generated for Brad zhu/Lakisha/Mario on: 06/11/2025 08:29 AM CDT
--- OUTSIDE RECORDS SUMMARY | 2025-06-11 08:29 | XMS_ITS | Clinical Summary ---
Author Organization [facility] [place] Address [address] [place] [address] Phone Care Team Providers Care Clerical Receptionist Name Role Phone Larry Galeano MD Primary Care Provider [phone] Allergies No known active allergies Medications spironolactone (ALDACTONE) 100 mg tablet 2 5 Active omega-3 fatty acids-fish oil 300-1,000 mg Capsule Take by mouth daily. Active fluticasone propionate (FLONASE) 50 mcg/spray [place], Suspension nasal inhaler Administer one spray into each nostril two times a day 16 Gram 5 01/01/2023 11:39 AM PATHOLOGIST 2 Active azithromycin (ZITHROMAX) 250 mg tablet TAKE BY MOUTH DIRECTED ON PACKAGE 6 Tablet 01/05/2023 2:15 PM PATHOLOGIST 3 Active azelastine (ASTELIN) 137 mcg/actuation nasal spray Administer 2 Sprays into each nostril 2 times daily. 30 mL 5 11/22/2023 11:45 AM PATHOLOGIST 3 Active cefdinir (OMNICEF) 300 mg capsule TAKE ONE CAPSULE BY MOUTH EVERY 12 HOURS FOR 10 DAYS 20 Capsule 02/10/2023 4:48 PM CDT 3 Active escitalopram oxalate (LEXAPRO) 5 mg tablet Take 1 tablet (5 mg total) by mouth daily 90 Tablet 1 3 Active ipratropium bromide (ATROVENT) 42 mcg (0.06 %) [place], Non-Aerosol Administer 1-2 sprays into each nostril 3 times daily. 15 mL 1 02/16/2024 10:04 AM CDT 3 Active busPIRone (BUSPAR) 10 mg tablet Take 1 tablet (10 mg total) by mouth 3 (three) times a day as needed (anxiety) 30 Tablet 3 11/17/2023 1:23 PM PATHOLOGIST 3 Active fluticasone propionate (Flonase Allergy Relief) 50 mcg/spray [place], Suspension nasal inhaler Administer 2 sprays into each nostril once daily 16 Gram 5 07/10/2024 6:48 PM CDT 4 Active fluticasone propionate (FLONASE) 50 mcg/spray [place], Suspension nasal inhaler Inhale 1 spray in each nostril twice a day 16 Gram 5 4 Active ipratropium bromide (ATROVENT) 42 mcg (0.06 %) [place], Non-Aerosol Administer 2 Sprays into each nostril 3 times daily. 15 mL 1 4 Active levocetirizine (XYZAL) 5 mg tablet Take 1 Tablet (5 mg) by mouth daily. 30 Tablet 5 05/20/2024 9:54 AM CDT 4 Active azelastine (ASTELIN) 137 mcg/actuation nasal spray Administer 2 sprays into each nostril 2 times daily. 30 mL 5 06/07/2024 4:37 PM CDT 4 Active fexofenadine (RAMONA) 180 mg tablet Take 1 Tablet (180 mg) by mouth daily. 90 Tablet 1 4 Active fluticasone propionate (FLONASE) 50 mcg/spray [place], Suspension nasal inhaler Administer 2 sprays in each nostril daily. 16 Gram 5 02/20/2025 7:01 PM CDT 4 Active tobramycin-dexA METHasone (TOBRADEX) 0.3-0.1 % suspension instill 1 drop into affected eye(s) every 6 hours for 1 week, shake well 5 mL 08/10/2024 12:29 PM CDT 4 Active fluticasone propionate (Flonase Allergy Relief) 50 mcg/spray [place], Suspension nasal inhaler Administer 2 sprays into each nostril once daily 16 Gram 5 05/20/2025 3:39 PM CDT 4 Active azithromycin (ZITHROMAX) 250 mg tablet take 2 tabs (500 mg) today (day 1), then 1 tab (250 mg) daily for 4 days (days 2-5) 6 Tablet 08/30/2024 11:24 AM CDT 4 Active ipratropium bromide (ATROVENT) 42 mcg (0.06 %) [place], Non-Aerosol Administer 1-2 sprays into each nostril 3 times daily. 15 mL 11 11/14/2024 4:54 PM PATHOLOGIST 4 Active azithromycin (ZITHROMAX) 250 mg tablet take 2 tablets (500 mg) today (day 1), then one tablet (250 mg) daily for 4 days (days 2-5) 6 Tablet 01/17/2025 6:22 PM PATHOLOGIST 5 Active spironolactone (ALDACTONE) 100 mg tablet Take 1 Tablet (100 mg) by mouth daily. 30 Tablet 5 Active fluticasone propionate (FLONASE) 50 mcg/spray [place], Suspension nasal inhaler Administer 1 [place] into each nostril 2 times daily. 16 Gram 5 5 Active Active Problems Patient Care Coordination No te Formatting of this note migh t be different from the original. Primary Care: Larry Galeano MD Referring Provider: [place] [address] [place] [address] Other: Problem Noted Date Diagnosed Date Nipple discharge 11/05/2015 Breast tenderness 11/05/2015 Encounters Date Type Department Care Team Description 06/04/2025 External Device Data [facility] ABSTRACTION Provider, Abstract 06/04/2025 External Device Data [facility] ABSTRACTION Provider, Abstract 05/07/2025 External Device Data [facility] ABSTRACTION Provider, Abstract 04/10/2025 External Device Data [facility] ABSTRACTION Provider, Abstract 04/10/2025 External Device Data [place] ABSTRACTION Provider, Abstract 04/09/2025 External Device Data [place] ABSTRACTION Provider, Abstract from Last 3 Months Immunizations Immunization Administration Dates Next Due INFLUENZA VACCINE QUADRIVALENT 6 MOS UP PF IM INFLUENZA VACCINE TRIVALENT SPLIT VIRUS, (6 MOS UP), 0.5ML (PF), IM 08/31/2024 Family History Medical History Relation Name Comments Heart Disease Father Lymphoma Mother Relation Name Status Comments Father Mother Social History Tobacco Use Types Packs/Day Years Used Date Smoking Tobacco: Never Alcohol Use Standard Drinks/Week Comments No 0 (1 standard drink = 0.6 oz pur e alcohol) Comments No Sex and Gender Information Value Date Recorded Sex Assigned at Not on file Legal Sex Female 10:34 AM PATHOLOGIST Gender Identity Not on file Sexual Orientation Not on file Last Filed Vital Signs Vital Sign Reading Time Taken Comments Blood Pressure 108/73 11/17/2015 12:36 PM PATHOLOGIST Pulse 77 11/17/2015 12:36 PM PATHOLOGIST Temperature 36.6 C (97.9 F) 11/17/2015 12:36 PM PATHOLOGIST Respiratory Rate - - Oxygen Saturation - - Inhaled Oxygen Concentration - - Weight 52.6 kg (116 lb) 11/17/2015 12:36 PM PATHOLOGIST Height 162.6 cm (5' 4) 11/17/2015 12:36 PM PATHOLOGIST Body Mass Index 19.91 11/17/2015 12:36 PM PATHOLOGIST Plan of Treatment Health Maintenance Due Date Last Done Comments DTAP/TDAP/TD VACCINES (1 - Tdap) 1995 HEPATITIS B VACCINES (1 of 3 - 19+ 3-dose series) 1995 HPV/Cotest (21-29) 1997 CERVICAL CANCER SCREENING 2006 HPV/Cotest (30-65) 2006 PAP SMEAR 2006 BREAST CANCER SCREENING 09/30/2016 09/30/2015 COLORECTAL SCREENING 2021 Colorectal Cancer Screening 2021 FIT-DNA Q 3 years 2021 FIT/FOBT Q 1 year 2021 Flex Sig/CT Colonography Q 5 years 2021 INFLUENZA VACCINE (#1) 2025 08/31/2024, 2022 Procedures Procedure Name Priority Date/Time Associated Diagnosis Comments MAMMO SCREEN BILAT W OR WO CAD Routine 09/30/2015 from Last 3 Months or Most Recently Relevant to Health Maintenance Results * MAMMO DIGITAL SCREEN BILAT (09/30/2015) Anatomical Region Laterality Modality Breast Bilateral Other us Angie Buchanan MD MAMMO ORDERABLES Final Resul t from Last 3 Months or Most Recently Relevant to Health Maintenance Insurance BS BLUE ACCESS/TRUE BLUE PPO RX [employer] Commercial RX [employer] (INTERNAL) [facility] Care Teams Clerical Receptionist Relationship Specialty Start Date End Date Larry Galeano MD PCP - General Internal Medicine 11/17/15
== END 2025-06-11 08:24 | disposition home or self-care (01) ==
PROVIDERS: PCP Family Medicine; Visit Provider Family Medicine
DX: K80.50 Calculus of bile duct without cholangitis or cholecystitis without obstruction (principal)
CPT/HCPCS: 78227; A9537; J2805

== ENCOUNTER 2025-06-20 07:31 | Outpatient (CLI) | payer BC, SELFPAY ==
--- OUTSIDE RECORDS SUMMARY | 2025-06-20 07:37 | XMS_ITS ---
Author Organization [facility] ([address]) Address [address] [place] [address] Care Team Providers Care Carpenter Maintenance Name Role Phone Froylan HARPER, Larry Primary Care Provider Richard Baez Unavailable [phone] Madonna HARPER, Kenn Unavailable Unavailable Sidra Molina [phone] REASON FOR VISIT ARC follow-up Encounters Encounter Location Date Provider Diagnosis [address] [address] 01/16/2025 Sidra Molina Plan Of Treatment No Information Progress Notes * Lindsay PALMER RDOB: [birth year] (50 yo F)Acc No.[id number]:01/16/2025 Progress Notes Patient: Leena RAGLAND Lindsay Meir Provider: Shalom Molina DNP AUTO DETAILER-C :1975 A ge:49 Y S ex:Female Date:01/16/2025 Address:[facility] Pcp:Larry Galeano MD Subjective: * Chief Complaints: * 1 . ARC follow-up. * Medical History: Objective: * Vitals: Assessment: Plan: * Treatment: * Billing Information: * Visit Code: * Procedure Codes: * Electronic signature of Sidra Molina DNP, FNP-Dennis on 06/20/2025 at 07:37 AM CDT Sign off status: Pending * Provider: PRADEEP Castaneda Date: 0 01/16/2025 Generated for Brad zhu/Lakisha/Mario on: 0 06/20/2025 07:37 AM CDT
--- OUTSIDE RECORDS SUMMARY | 2025-06-20 07:37 | XMS_ITS | Encounter Summary ---
Author Organization [facility] Healthcare Address [address] [place] [address] Care Team Providers Care Engineering And Development Director Name Role Phone Alistair Coon MD Primary Care Provider [phone] Encounter Details Date Type Department Care Team (Latest Contact Info) Description 05/07/2025 Results Follow-Up [facility] Medical Group Obstetrical Gynecology [address] [address] Kymberly Parsons MD [address] [place] [address] [phone] Pap and High Risk HPV and Genotyping (Cytology Component) Social History Tobacco Use Types Packs/Day Years Used Date Smoking Tobacco: Never Passive Smoke Exposure: Never Smokeless Tobacco: Never Comments No Sex and Gender Information Value Date Recorded Sex Assigned at Not on file Legal Sex 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
--- OUTSIDE RECORDS SUMMARY | 2025-06-20 07:37 | XMS_ITS | Patient Health Record ---
Author Organization [facility] Address [address] [place], [place] [id number] Care Team Providers Care Cone Worker Name Role Phone BILL Scott Unavailable Larry Galeano Unavailable Unavailable Reason For Referral No Information Medications Medication SIG (Take, Route, Frequency, Duration) Notes Start Date End Date Status Medrol Dosepak ORAL Medrol DosepakOr iginal MedicationMedrol Dosepak *Reorder from zuuka! for eRx and Interaction Alerts* 06/22/2022 Active Plan Of Treatment No Information Insurance Providers Payer Name Payer Address Payer Phone Subscriber Number Group Number Insured Name Patient Relationship to Insured Coverage Start Date Coverage End Date [facility] ([facility]) ATTN CLAIMS [address] [place] [address] [id number] SHANITA PALMER Self - patient is the insured
--- OUTSIDE RECORDS SUMMARY | 2025-06-20 07:37 | XMS_ITS ---
Author Organization [facility] [place] ([address]) Address [address] [place] [address] Care Team Providers Care Test Development Engineer Name Role Phone Froylan HARPER, Larry Primary Care Provider Richard Baez Unavailable [phone] Madonna HARPER, Kenn Unavailable Unavailable Sidra Molina [phone] REASON FOR VISIT ARC follow-up Encounters Encounter Location Date Provider Diagnosis [address] [address] 05/22/2025 Sidra Molina Plan Of Treatment No Information Progress Notes * Lindsay PALMER RDOB: [birth year] (50 yo F)Acc No.[id number]:05/22/2025 Progress Notes Patient: Leena RAGLAND Lindsay Meir Provider: Shalom Molina DNP PLAN CONSULTANT-C :1975 A ge:50 Y S ex:Female Date:05/22/2025 Address:[facility] Pcp:Larry Galeano MD Subjective: * Chief Complaints: * 1 . ARC follow-up. * Medical History: Objective: * Vitals: Assessment: Plan: * Treatment: * Billing Information: * Visit Code: * Procedure Codes: * Electronic signature of Sidra Molina DNP, FNP-Dennis on 06/20/2025 at 07:37 AM CDT Sign off status: Pending * Provider: PRADEEP Castaneda Date: 05/22/2025 Generated for Brad zhu/Lakisha/Mario on: 0 06/20/2025 07:37 AM CDT
--- OUTSIDE RECORDS SUMMARY | 2025-06-20 07:37 | XMS_ITS | Clinical Summary ---
Author Organization [facility] Address [address] [place] [address] Care Team Providers Care College Or University Department Head Name Role Phone Unavailable Primary Care Provider Unavailabl e Source Comments [facility],non-owned Affiliates and Associated Physician Practices is amultiple site organization consisting of ambulatory clinics and hospital sitesin [place], [place], [place] and [place]. This disclosure is being madepursuant to the Care Everywhere program and may not contain all information available regarding this patient. Last updated 18.[facility] Social History Tobacco Use Types Packs/Day Years [...] patient's age to complete this topic Insurance [facility]
--- OUTSIDE RECORDS SUMMARY | 2025-06-20 07:37 | XMS_ITS | Clinical Summary ---
Author Organization [facility] Medical [facility] Building [address] [place] [address] Care Team Providers Care Metropolitan Editor Name Role Phone Alistair Coon MD Primary Care Provider [phone] Allergies No known active allergies Medications azithromycin [...] Department Care Team Description 05/07/2025 Results Follow-Up [facility] Obstetrical Gynecology [address] [phone] Kymberly Parsons MD Pap and High Risk HPV and Genotyping (Cytology Component) 04/29/2025 12:17 PM CDT - 04/29/2025 11:59 PM CDT Hospital Encounter [facility] Medical Office Building [address] [place] [address] Well woman exam Discharge Disposition: Discharge to home or self care 04/29/2025 9:30 AM CDT Office Visit [facility] Obstetrical Gynecology [address] [facility] [address] [place] [phone] Kymberly Parsons MD Well woman exam (Primary [...] on file Legal Sex Female 6:59 PM 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 Gender Identity Not on file Sexual Orientation [...] DTaP/Tdap/Td Vaccine (1 - Tdap) 08/06/2018 08/05/2018 Influenza Vaccine (#1) 2025 , 08/31/2023, 08/30/2020, Additional history exists Breast Cancer Screening-Mammogram 08/05/2025 08/05/2024, 08/03/2023, 07/08/2022, Additional history exists Cervical Cancer Screening 04/29/20262024, 04/29/2025, 09/06/2022 Regular Well Visit/Exam 18-64 04/29/2026 04/29/2025, 11/16/2023, 09/06/2022 Pneumococcal vaccine <65 Aged Out No longer [...] HPV HR 16 Not Detected Not Detected [facility] Comment:Testing performed by : [facility], [address] [place]., [address] HPV HR 18 Not Detected Not Detected JOSE Comment:Testing performed by : [facility], [address] [place]., [address] HPV HR Non 16/18 Not Detected Not [...] this test have been verified by the [facility] Molecular Infectious Disease laboratory. Correlate with separately reported cytology results, as applicable. Interpretive data last revised 23 Testing performed by: [facility], [address] [place]., [address] Endocervical 04/29/2025 10:2 3 AM CDT 04/30/2025 7:44 AM CDT Narrative JOSE - 05/01/2025 4:47 AM CDT Clinical history and diagnosis->screening Testing type->Screening Last menstrual period (date if known)->03/24/25 Kymberly Parsons MD LAB BODY FLUIDS AND STOOL S ORDERABLES Final Result JOSE [address] [facility] Department [place] [address] [facility] * Pap and High Risk HPV and Genotyping (Cytology Component) (04/29/2025 10:23 AM CDT) Thin prep (Pap test) 04/29/2025 10:23 AM CDT 04/30/2025 2:17 AM CDT Narrative PATHOLOGY [facility] - 05/06/2025 9:14 PM CDT EPIC results best viewed via link to PDF [facility] [place] [address] Note to Patients: This report may contain [...] Gender: Veronika : 1975 (Age: 50) Address: [address] [place] [address] Hospital #: [id number] Service: DEFAULT Location: Patient Type: [facility] SPECIMEN Taken: 04/29/2025 Received: 04/30/2025 [...] this test have been verified by the [facility] Molecular Infectious Disease laboratory. Correlate with reported cytology results, as applicable. Interpretive data last revised 23 [facility]/05/06/2025 21:14 By this signature, I attest [...] and histologic results be correlated for laboratory senior quality manager & improvement standards. FOR ALL HIGH-GRADE [...] determined by the Surgical Pathology Department at [facility] as part of an ongoing advanced quality engineer program and in compliance with [...] determined by the Surgical Pathology Department of [facility]. It has not been cleared or approved by the U. S. Food and Drug Administration. Kymberly Parsons MD LAB CYTOLOGY ORDERABLES F inal Result PATHOLOGY [facility] * Screening Mammogram Bilateral W Rayray [...] age 40, based on guidelines of the [place] [employer] (ACR Practice Parameter for the Performance of Screening and Diagnostic Mammography) and [place] [employer]. For women [...] Most Recently Relevant to Health Maintenance [place] PENDING SALE TO [facility] Care Teams Metropolitan Editor Relationship Specialty Start Date End Date Alistair Coon MD [address] [address] PCP - General Family Medicine 07/08/22
--- OUTSIDE RECORDS SUMMARY | 2025-06-20 07:37 | XMS_ITS | Encounter Summary ---
Author Organization [facility] Address [address] [facility] [place] [address] Care Team Providers Care Transformation Specialist Name Role Phone Unavailable Primary Care Provider Unavailabl e Encounter Details Date Type Department Care Team (Late st Contact Info) Description 06/08/2023 Lab Requisition [facility] Derm[facility] Lab [address] [facility], [place] [phone] Sher Dover MD [address] [facility] [place] [address] Social History Tobacco Use Types [...] AM CDT) Case Report Dermatopathology Report Case: [id number] Authorizing Provider: Sher Dover MD Collected: 06/06/2023 12:00 AM Ordering Location: [facility] DermPath Lab Received: 06/08/2023 09:36 AM Pathologist: Leydi Daniel MD Specimen: Skin, right mid chest 3 3:12 PM CDT DERMATOPATHOLOGY LABORATORY Final Diagnosis Specimen A. SKIN, right mid chest: ACTINIC KERATOSIS, ACANTHOLYTIC TYPE (L57.0) EPIDERMAL NECROSIS SUGGESTIVE OF EXCORIATION (L98.499) (see microscopic description) 3 3:12 PM CDT DERMATOPATHOLOGY LABORATORY at 1512 CDT Clinical History BCCA vs angioma. Path#[id number] 3 3:12 PM CDT DERMATOPATHOLOGY LABORATORY Gross [...] characteristic determined by the Dermatopathology Laboratory at [facility], directed by Dr. Ibeth Engle. These tests need not be, and therefore are not, approved by the [place] Food and Drug Administration. The tests are used for clinical purposes. Billing Codes Specimen Charges Stain Charges 75087 1 3 3:12 PM CDT DERMATOPATHOLOGY LABORATORY Embedded Images 3 3:12 PM CDT DERMATOPATHOLOGY LABORATORY Pathology/Cytolog y TISSUE SPECIMEN FROM SKIN / Unknown 06/06/2023 06/08/2023 9:36 AM CDT us Sher Dover MD LAB - PATHOLOGY/CYTOLOGY ORDER JOSE Final Result DERMATOPATHOLOGY LABORATORY [facility] - Department of Dermatology [address] [place] [address], [facility] [phone] documented in this encounter Visit Diagnoses Not on filedocumented in this encounter
--- OUTSIDE RECORDS SUMMARY | 2025-06-20 07:37 | XMS_ITS | Referral Summary ---
Author Organization [facility] Medical Office Building [address] [place] [address] Care Team Providers Care Prefitter Name Role Phone Alistair Coon MD Primary Care Provider [phone] Encounters Date Type Department Care Team Description 05/07/2025 Results Follow-Up [facility] Medical [facility] Obstetrical Gynecology [address] [phone] Kymberly Parsons MD Pap and High Risk HPV and Genotyping (Cytology Component) 04/29/2025 12:17 PM CDT - 04/29/2025 11:59 PM CDT Hospital Encounter [facility] Building [address] [place] [address] Well woman exam Discharge Disposition: Discharge to home or self care 04/29/2025 9:30 AM CDT Office Visit 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 Correlate with separately reported cytology results, as applicable. Interpretive data last revised 23 Testing performed by: [facility], [address] [place]., [address] Endocervical 04/29/2025 10:2 3 AM CDT 04/30/2025 7:44 AM CDT Narrative JOSE - 05/01/2025 4:47 AM CDT Clinical history and diagnosis->screening Testing type->Screening Last menstrual period (date if known)->03/24/25 Kymberly Parsons MD LAB BODY FLUIDS AND STOOL S ORDERABLES Final Result JOSE [address] [facility] Department [place] [address] [facility] * Pap and High Risk HPV and Genotyping (Cytology Component) (04/29/2025 10:23 AM CDT) Thin prep (Pap test) 04/29/2025 10:23 AM CDT 04/30/2025 2:17 AM CDT Narrative PATHOLOGY [facility] - 05/06/2025 9:14 PM CDT EPIC results best viewed via link to PDF [facility] [place] [address] Note to Patients: This report may contain [...] Gender: F : 1975 (Age: 50) Address: [address] [place] [address] Hospital #: [id number] Service: DEFAULT Location: Patient Type: [facility] SPECIMEN Taken: 04/29/2025 Received: 04/30/2025 Accessioned: 04/30/2025 [...] this test have been verified by the [facility] Molecular Infectious Disease laboratory. Correlate [...] clinical information and biopsy results as indicated. [facility] Clinical Laboratory Improvement Amendments (CLIA) mandate that cytologic and histologic results be correlated for laboratory senior software quality analyst & improvement standards. FOR ALL HIGH-GRADE CASES [...] determined by the Surgical Pathology Department at [facility] as part of an ongoing water quality analyst program and in compliance with federally mandated [...] determined by the Surgical Pathology Department of [facility]. It has not been cleared or approved by the U. S. Food and Drug Administration. Kymberly Parsons MD LAB CYTOLOGY ORDERABLES F inal Result PATHOLOGY [facility] * Screening Mammogram Bilateral W Rayray [...] age 40, based on guidelines of the [employer] (ACR Practice Parameter for the Performance of Screening and Diagnostic Mammography) and [employer]nec[employer]. For women [...] Most Recently Relevant to Health Maintenance Insurance [facility] BLUE ACCESS [place] BLUE ACCESS MD Care Teams Prefitter Relationship Specialty Start Date End Date Alistair Coon MD [address] [address] PCP - General Family Medicine 07/08/22
--- OUTSIDE RECORDS SUMMARY | 2025-06-20 07:37 | XMS_ITS ---
Author Organization [facility] [place] ([address]) Address [address] [place] [address] Care Team Providers Care Wine Steward Name Role Phone Froylan HARPER, Larry Primary Care Provider Richard Baez Unavailable [phone] Madonna HARPER, Kenn Unavailable Unavailable Sidra Molina [phone] REASON FOR VISIT ARC follow-up Encounters Encounter Location Date Provider Diagnosis [address] [phone] 03/20/2025 Sidra Molina Plan Of Treatment No Information Progress Notes * Lindsay PALMER RDOB: [birth year] (50 yo F)Acc No.[id number]:03/20/2025 Progress Notes Patient: Leena RAGLAND Lindsay Meir Provider: Shalom Molina DNP CAUSE ANALYST-C :1975 A ge:50 Y S ex:Female Date:03/20/2025 Address:[address] [facility] Pcp:Larry Galeano MD Subjective: * Chief Complaints: * 1 . ARC follow-up. * Medical History: Objective: * Vitals: Assessment: Plan: * Treatment: * Billing Information: * Visit Code: * Procedure Codes: * Electronic signature of Sidra Molina DNP, FNP-Dennis on 06/20/2025 at 07:37 AM CDT Sign off status: Pending * Provider: PRADEEP Castaneda Date: 0 03/20/2025 Generated for Brad zhu/Lakisha/Mario on: 0 06/20/2025 07:37 AM CDT
--- OUTSIDE RECORDS SUMMARY | 2025-06-20 07:38 | XMS_ITS | Patient Health Record ---
Author Organization [facility] [place] ([address]) Address [address] [place] [address] Care Team Providers Care Cork Sorter Name Role Phone Froylan HARPER, Larry Primary Care Provider Richard Baez Unavailable [phone] Kenn Peacock MD Unavailable Unavailable Sidra Molina Unavailable [phone] Allergies No Known Allergies Reason For Referral [...] affected eye once a day Active Ipratropium Ashburn 0.06 % 2 spray(s) intranasally 3 times [...] review and pick correct strength-formulat ion from Keep Me Certified options. If intended option is not shown, discontinue and re-order from Quick Search* Active Patanase 665 MCG/INH 2 SPRAY(S) INTRANASALLY QDAY, PRN; Duration: 30 DAY(S) *Please review and pick correct strength-formulat ion from Keep Me Certified options. If intended option is not shown, discontinue and re-order from Quick Search* Active Spironolactone 100 MG 1 tab(s) orally on ce a day; Duration: 30 day(s) Active Immunizations Vaccine Route Administration Date Status Comme nts Fluzone Quadrivalent Unknown 08/30/2017 Administered Influenza Unknown 08/04/2014 Administered Covid 19 (Pfizer) Unknown 12/22/2020 Administered Covid 19 (Pfizer) Unknown 01/12/2021 Administered Fluzone, quadrivalent, prese rvative free Unknown 08/30/2021 Administered Social History Tobacco Use: Social History Observation Description Date Details (start date - stop date) Never Smoker NA - NA Smoking Smart Form: Question Answer Notes Are you a: never smoker Tobacco Control (Standard) Question Answer Notes Tobacco use: Nonsmoker Problems Problem Type SNOMED Code ICD Code Onset Dates Problem Status W/U Status Risk Notes Problem Chronic allergic conjunctivitis (26149113) Other chronic allergic conjunctivitis (H10.45) Active confirmed Problem Allergic rhinitis caused by pollen (disorder) (27275328) Allergic rhinitis due to pollen (J30.1) Active confirmed Problem Allergic rhinitis caused by animal hair and dander (944401325288268) Allergic rhinitis due to animal (cat) (dog) hair and dander (J30.81) Active confirmed Problem Allergic rhinitis (98469280) Other allergic rhinitis (J30.89) Active confirmed Problem Cough (58607830) Cough (R05) Active confirmed Plan Of Treatment No Information Insurance Providers Payer Name Payer Address Payer Phone Subscriber Number Group Number Insured Name Patient Relationship to Insured Coverage Start Date Coverage End Date [facility] [address] [place] [address] [phone] [id number] Lindsay Caputo Self - patient is the insured Medical (General) History Medical History History ICD Code Allergic rhinitis due to pollen Allergic rhinitis due to animal (cat) (d og) hair and dander Other allergic rhinitis Other chronic allergic conjunctivitis Cough Surgical History Surgery Date(Month/Year)
--- OUTSIDE RECORDS SUMMARY | 2025-06-20 07:38 | XMS_ITS | Clinical Summary ---
Author Organization [facility] [place] Address [address] [place] [address] Phone Care Team Providers Care Marine Cargo Specialist Name Role Phone Larry Galeano MD Primary Care Provider [phone] Allergies No known active allergies Medications spironolactone (ALDACTONE) 100 mg tablet 2 5 Active omega-3 fatty acids-fish oil 300-1,000 mg Capsule Take by mouth daily. Active fluticasone propionate (FLONASE) 50 mcg/spray Codorus, Suspension nasal inhaler Administer one spray into each nostril two times a day 16 Gram 5 01/01/2023 11:39 AM DENSITOMETER READER 2 Active azithromycin (ZITHROMAX) 250 mg tablet TAKE BY MOUTH DIRECTED ON PACKAGE 6 Tablet 01/05/2023 2:15 PM DENSITOMETER READER 3 Active azelastine (ASTELIN) 137 mcg/actuation nasal spray Administer 2 Sprays into each nostril 2 times daily. 30 mL 5 11/22/2023 11:45 AM DENSITOMETER READER 3 Active cefdinir (OMNICEF) 300 mg capsule TAKE ONE CAPSULE BY MOUTH EVERY 12 HOURS FOR 10 DAYS 20 Capsule 02/10/2023 4:48 PM CDT 3 Active escitalopram oxalate (LEXAPRO) 5 mg tablet Take 1 tablet (5 mg total) by mouth daily 90 Tablet 1 3 Active ipratropium bromide (ATROVENT) 42 mcg (0.06 %) Codorus, Non-Aerosol Administer 1-2 sprays into each nostril 3 times daily. 15 mL 1 02/16/2024 10:04 AM CDT 3 Active busPIRone (BUSPAR) 10 mg tablet Take 1 tablet (10 mg total) by mouth 3 (three) times a day as needed (anxiety) 30 Tablet 3 11/17/2023 1:23 PM DENSITOMETER READER 3 Active fluticasone propionate (Flonase Allergy Relief) 50 mcg/spray Codorus, Suspension nasal inhaler Administer 2 sprays into each nostril once daily 16 Gram 5 07/10/2024 6:48 PM CDT 4 Active fluticasone propionate (FLONASE) 50 mcg/spray Codorus, Suspension nasal inhaler Inhale 1 spray in each nostril twice a day 16 Gram 5 4 Active ipratropium bromide (ATROVENT) 42 mcg (0.06 %) Codorus, Non-Aerosol Administer 2 Sprays into each nostril [...] 4 Active fluticasone propionate (FLONASE) 50 mcg/spray Codorus, Suspension nasal inhaler Administer 2 sprays in each nostril daily. 16 Gram 5 02/20/2025 7:01 PM CDT 4 Active tobramycin-dexA METHasone (TOBRADEX) 0.3-0.1 % suspension instill 1 drop into affected eye(s) every 6 hours for 1 week, shake well 5 mL 08/10/2024 12:29 PM CDT 4 Active fluticasone propionate (Flonase Allergy Relief) 50 mcg/spray Codorus, Suspension nasal inhaler Administer 2 sprays into each nostril once daily 16 Gram 5 06/19/2025 12:05 PM CDT 4 Active azithromycin (ZITHROMAX) 250 mg tablet take 2 tabs (500 mg) today (day 1), then 1 tab (250 mg) daily for 4 days (days 2-5) 6 Tablet 08/30/2024 11:24 AM CDT 4 Active ipratropium bromide (ATROVENT) 42 mcg (0.06 %) Codorus, Non-Aerosol Administer 1-2 sprays into each nostril 3 times daily. 15 mL 11 11/14/2024 4:54 PM DENSITOMETER READER 4 Active azithromycin (ZITHROMAX) 250 mg tablet take 2 tablets (500 mg) today (day 1), then one tablet (250 mg) daily for 4 days (days 2-5) 6 Tablet 01/17/2025 6:22 PM DENSITOMETER READER 5 Active spironolactone (ALDACTONE) 100 mg tablet Take 1 Tablet (100 mg) by mouth daily. 30 Tablet 5 Active fluticasone propionate (FLONASE) 50 mcg/spray Codorus, Suspension nasal inhaler Administer 1 Codorus into each nostril 2 times daily. 16 Gram 5 5 Active Active Problems Patient Care Coordination No te Formatting of this note migh t be different from the original. Primary Care: Larry Galeano MD Referring Provider: [place] [address] [place] [address] Other: Problem Noted Date Diagnosed Date Nipple [...] on file Legal Sex Female 10:34 AM DENSITOMETER READER Gender Identity Not on file Sexual Orientation Not on file Last Filed Vital Signs Vital Sign Reading Time Taken Comments Blood Pressure 108/73 11/17/2015 12:36 PM DENSITOMETER READER Pulse 77 11/17/2015 12:36 PM DENSITOMETER READER Temperature 36.6 C (97.9 F) 11/17/2015 12:36 PM DENSITOMETER READER Respiratory Rate - - Oxygen Saturation - - Inhaled Oxygen Concentration - - Weight 52.6 kg (116 lb) 11/17/2015 12:36 PM DENSITOMETER READER Height 162.6 cm (5' 4) 11/17/2015 12:36 PM DENSITOMETER READER Body Mass Index 19.91 11/17/2015 12:36 PM DENSITOMETER READER Plan of Treatment Health Maintenance Due Date [...] PLANS (INTERNAL) [facility] Care Teams Marine Cargo Specialist Relationship Specialty Start Date End Date Larry Galeano MD PCP - General Internal Medicine 11/17/15
[2025-06-20 08:16] LABS: Alanine Aminotransferase 21 U/L (6-35); Albumin Level 4.1 g/dL (3.5-5.1); Alkaline Phosphatase 48 U/L (38-126); Amylase 81 U/L (30-110); Aspartate Amino Transferase 26 U/L (14-36); Bilirubin,Total 1.9 mg/dL (0.2-1.3); Lipase 113 U/L (23-300); Total Protein 6.7 g/dL (6.3-8.2)
== END 2025-06-20 07:32 | disposition home or self-care (01) ==
LOC: ANHSURGERY 07:34
PROVIDERS: PCP Family Medicine; Visit Provider Surgery
DX: Z01.818 Encounter for other preprocedural examination (principal); K80.50 Calculus of bile duct without cholangitis or cholecystitis without obstruction
CPT/HCPCS: 36415; 80076; 82150; 83690

== ENCOUNTER 2025-06-23 01:39 | Day surgery (SDC) | payer BC, SELFPAY ==
[2025-06-18 11:59] VITALS: BMI 19.9
--- NOTE | 2025-06-18 12:00 | PC.NURSE ---
Report to the Outpatient Waiting Room, entrance under the green pavilion located off [facility], at time _0630_ on date _08-87-2906_. Planned Procedure Time: _0830_.? Time changes happen often and if your time is changed the preop area will call you the afternoon before. - You and your visitor will be asked to self-screen and do not enter if you have any COVID symptoms. Please call surgeon if you need to reschedule. - A mask is optional within the hospital at this time. Patients may have clear liquids (water, carbonated beverages, clear teas, apple juice) until 3 hours prior to surgery with a maximum of 20 ounces. - No food from midnight until time of surgery and no smoking, or chewing tobacco (or any form of nicotine). No chewing gum, candy or mints. Take only the following medications with a SIP of water on the morning of surgery: ___Flonase and Ipatropium nose sprays.____ DO NOT STOP ANY OF YOUR OTHER PRESCRIPTION MEDICATIONS PRIOR TO SURGERY EXCEPT THE FOLLOWING Hold all vitamins and supplements for 3 days per anesthesiologist. Stop now. Medications to discontinue per physician Date to take last dose Please no make-up, nail spanish, hairspray, perfume, deodorant, or body powder the day of surgery.? No jewelry (including any body piercings) or valuables the day of surgery, leave them at home.? Please take a shower or bath the night before, or the morning of, surgery with an antibacterial soap.? Wear comfortable, loose fitting clothing.? - Jewelry must be removed prior to entering the operating room.? Rings and piercings that are not removed may be cut off. - The hospital will not accept responsibility for valuables.? - Please leave all valuables, including medications, at home the day of surgery. If you are going home after surgery, a licensed speedboat driver must drive you home.? - NO public transportation without another adult if you receive anesthesia. - We recommend that an adult stay with you for 24 hours following discharge. - We also recommend that you do not drive, make important decision, drink alcoholic beverages, or take any drugs that were not prescribed by your health care provider for at least 24 hours after your discharge time. Follow any additional instructions given to you from your surgeon. Telephone instructions given to __Lindsay___and asked if any additional questions and then verbalized understanding. Patient advised to call surgeon office or pre surgery nurse liaison [phone] if any additional questions.
[2025-06-23] VITALS (9 sets, daily range): BP systolic 111–146; BP diastolic 69–89; PULSE 77–93; RESP 13–20; TEMP 36.1–37.3; O2SAT 100
--- OUTSIDE RECORDS SUMMARY | 2025-06-23 01:41 | XMS_ITS | Referral Summary ---
Author Organization [facility] Medical Office Building [address] [place] [address] Care Team Providers Care Clinical Haematologist Name Role Phone Alistair Coon MD Primary Care Provider [phone] Encounters Date Type Department Care Team Description 05/07/2025 Results Follow-Up [facility] Medical [facility] Obstetrical Gynecology [address] [phone] Kymberly Parsons MD Pap and High Risk HPV and Genotyping (Cytology Component) 04/29/2025 12:17 PM CDT - 04/29/2025 11:59 PM CDT Hospital Encounter [facility] Building [address] [place] [address] Well woman exam Discharge Disposition: Discharge to home or self care 04/29/2025 9:30 AM CDT Office Visit [facility] Obstetrical Gynecology [address] [place] [phone] Kymberly Parsons MD Well woman exam [...] on file 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 Comment:Testing performed by : [facility], [address] [place] [address] HPV HR 18 Not Detected Not Detected [facility] Comment:Testing performed by : [facility], [address] [place] [address] HPV HR Non 16/18 Not Detected Not [...] test have been verified by the [facility] Molecular Infectious Disease laboratory. Correlate with separately reported cytology results, as applicable. Interpretive data last revised 23 Testing performed by: [facility], [address] [place]., [address] Endocervical 04/29/2025 10:2 3 AM CDT 04/30/2025 7:44 AM CDT Narrative JOSE - 05/01/2025 4:47 AM CDT Clinical history and diagnosis->screening Testing type->Screening Last menstrual period (date if known)->03/24/25 Kybmerly Parsons MD LAB BODY FLUIDS AND STOOL S ORDERABLES Final Result JOSE [address] [facility] Department [place] [address] [facility] * Pap and High Risk HPV and Genotyping (Cytology Component) (04/29/2025 10:23 AM CDT) Thin prep (Pap test) 04/29/2025 10:23 AM CDT 04/30/2025 2:17 AM CDT Narrative PATHOLOGY [facility] - 05/06/2025 9:14 PM CDT EPIC results best viewed via link to PDF [facility] [place] [address] Note to Patients: This report may contain [...] Gender: F : 1975 (Age: 50) Address: [address] [place] [address] Hospital #: [id number] Service: DEFAULT Location: Patient Type: [facility] SPECIMEN Taken: 04/29/2025 Received: 04/30/2025 Accessioned: 04/30/2025 Reported: 05/06/2025 Physician(s): Kymberly Pasrons M.D. FINAL INTERPRETATION SOURCE OF SPECIMEN Liquid [...] test have been verified by the [facility] Molecular Infectious Disease laboratory. Correlate with [...] clinical information and biopsy results as indicated. [facility] Clinical Laboratory Improvement Amendments (CLIA) mandate that cytologic and histologic results be correlated for laboratory quality project manager & improvement standards. FOR ALL HIGH-GRADE [...] by the Surgical Pathology Department at [facility] as part of an ongoing quality control representative program and in compliance with federally mandated [...] by the Surgical Pathology Department of [facility]. It has not been cleared or approved by the U. S. Food and Drug Administration. Kymberly Parsons MD LAB CYTOLOGY ORDERABLES F inal Result PATHOLOGY [facility] * Screening Mammogram Bilateral W Rayray (08/05/2024 [...] age 40, based on guidelines of the [place] [employer] (ACR Practice Parameter for the Performance of Screening and Diagnostic Mammography) and [place] [employer]. For women [...] Most Recently Relevant to Health Maintenance Insurance [facility] [place]UE ACC[place] Care Teams Clinical Haematologist Relationship Specialty Start Date End Date Alistair Coon MD [address] [address] PCP - General Family Medicine 07/08/22
--- OUTSIDE RECORDS SUMMARY | 2025-06-23 01:41 | XMS_ITS | Encounter Summary ---
Author Organization [facility] Address [address] [facility] [place] [address] Care Team Providers Care Journeyman Operator Assistant Name Role Phone Unavailable Primary Care Provider Unavailabl e Encounter Details Date Type Department Care Team (Late st Contact Info) Description 06/08/2023 Lab Requisition [facility] - DermPath Lab [address] [facility], [place] [phone] Sher Dover MD [address] [facility] [place] [address] Social History Tobacco Use Types [...] AM CDT) Case Report Dermatopathology Report Case: [id number] Authorizing Provider: Sher Dover MD Collected: 06/06/2023 12:00 AM Ordering Location: [facility] DermPath Lab Received: 06/08/2023 09:36 AM Pathologist: Leydi Daniel MD Specimen: Skin, right mid chest 3 3:12 PM CDT DERMATOPATHOLOGY LABORATORY Final Diagnosis Specimen A. SKIN, right mid chest: ACTINIC KERATOSIS, ACANTHOLYTIC TYPE (L57.0) EPIDERMAL NECROSIS SUGGESTIVE OF EXCORIATION (L98.499) (see microscopic description) 3 3:12 PM CDT DERMATOPATHOLOGY LABORATORY at 1512 CDT Clinical History BCCA vs angioma. Path#[id number] 3 3:12 PM CDT DERMATOPATHOLOGY LABORATORY Gross [...] characteristic determined by the Dermatopathology Laboratory at [facility], directed by Dr. Ibeth Engle. These tests need not be, and therefore are not, approved by the [place] Food and Drug Administration. The tests are used for clinical purposes. Billing Codes Specimen Charges Stain Charges 89984 1 3 3:12 PM CDT DERMATOPATHOLOGY LABORATORY Embedded Images 3 3:12 PM CDT DERMATOPATHOLOGY LABORATORY Pathology/Cytolog y TISSUE SPECIMEN FROM SKIN / Unknown 06/06/2023 06/08/2023 9:36 AM CDT us Sher Dover MD LAB - PATHOLOGY/CYTOLOGY ORDER JOSE Final Result DERMATOPATHOLOGY LABORATORY [facility] - Department of Dermatology [address], [address] [place] [address], [facility] [phone] documented in this encounter Visit Diagnoses Not on filedocumented in this encounter
--- OUTSIDE RECORDS SUMMARY | 2025-06-23 01:41 | XMS_ITS ---
Author Organization [facility] [place] ([address]) Address [address] [place] [address] Care Team Providers Care Plater Apprentice Name Role Phone Froylan HARPER, Larry Primary Care Provider Richard Baez Unavailable [phone] Madonna HARPER, Kenn Unavailable Unavailable Sidra Molina [phone] REASON FOR VISIT ARC follow-up Encounters Encounter Location Date Provider Diagnosis [address] [address] 05/22/2025 Sidra Molina Plan Of Treatment No Information Progress Notes * Lindsay PALMER RDOB: [birth year] (50 yo F)Acc No.[id number]:05/22/2025 Progress Notes Patient: Leena RAGLAND Lindsay Meir Provider: Shalom Molina DNP NURSING ADMINISTRATOR-C :1975 A ge:50 Y S ex:Female Date:05/22/2025 Address:[facility] [facility] Pcp:Larry Galeano MD Subjective: * Chief Complaints: * 1 . ARC follow-up. * Medical History: Objective: * Vitals: Assessment: Plan: * Treatment: * Billing Information: * Visit Code: * Procedure Codes: * Electronic signature of Sidra Molina DNP, FNP-Dennis on 06/23/2025 at 01:41 AM CDT Sign off status: Pending * Provider: PRADEEP Castaneda-Dennis Date: 05/22/2025 Generated for Brad zhu/Lakisha/Mario on: 0 06/23/2025 01:41 AM CDT
--- OUTSIDE RECORDS SUMMARY | 2025-06-23 01:41 | XMS_ITS | Clinical Summary ---
Author Organization [facility] Address [address] [place] [address] Phone Care Team Providers Care Oracle Drm Consultant Name Role Phone Larry Galeano MD Primary Care Provider [phone] Allergies No known active allergies Medications spironolactone (ALDACTONE) 100 mg tablet 2 5 Active omega-3 fatty acids-fish oil 300-1,000 mg Capsule Take by mouth daily. Active fluticasone propionate (FLONASE) 50 mcg/spray [place], Suspension nasal inhaler Administer one spray into each nostril two times a day 16 Gram 5 01/01/2023 11:39 AM SPECIAL EDUCATION SECRETARY 2 Active azithromycin (ZITHROMAX) 250 mg tablet TAKE BY MOUTH DIRECTED ON PACKAGE 6 Tablet 01/05/2023 2:15 PM SPECIAL EDUCATION SECRETARY 3 Active azelastine (ASTELIN) 137 mcg/actuation nasal spray Administer 2 Sprays into each nostril 2 times daily. 30 mL 5 11/22/2023 11:45 AM SPECIAL EDUCATION SECRETARY 3 Active cefdinir (OMNICEF) 300 mg capsule TAKE ONE CAPSULE BY MOUTH EVERY 12 HOURS FOR 10 DAYS 20 Capsule 02/10/2023 4:48 PM CDT 3 Active escitalopram oxalate (LEXAPRO) 5 mg tablet Take 1 tablet (5 mg total) by mouth daily 90 Tablet 1 3 Active ipratropium bromide (ATROVENT) 42 mcg (0.06 %) [place], Non-Aerosol Administer 1-2 sprays into each nostril 3 times daily. 15 mL 1 02/16/2024 10:04 AM CDT 3 Active busPIRone (BUSPAR) 10 mg tablet Take 1 tablet (10 mg total) by mouth 3 (three) times a day as needed (anxiety) 30 Tablet 3 11/17/2023 1:23 PM SPECIAL EDUCATION SECRETARY 3 Active fluticasone propionate (Flonase Allergy Relief) 50 mcg/spray [place], Suspension nasal inhaler Administer 2 sprays into each nostril once daily 16 Gram 5 07/10/2024 6:48 PM CDT 4 Active fluticasone propionate (FLONASE) 50 mcg/spray [place], Suspension nasal inhaler Inhale 1 spray in each nostril twice a day 16 Gram 5 4 Active ipratropium bromide (ATROVENT) 42 mcg (0.06 %) [place], Non-Aerosol Administer 2 Sprays into each nostril [...] 4 Active fluticasone propionate (FLONASE) 50 mcg/spray [place], Suspension nasal inhaler Administer 2 sprays in each nostril daily. 16 Gram 5 02/20/2025 7:01 PM CDT 4 Active tobramycin-dexA METHasone (TOBRADEX) 0.3-0.1 % suspension instill 1 drop into affected eye(s) every 6 hours for 1 week, shake well 5 mL 08/10/2024 12:29 PM CDT 4 Active fluticasone propionate (Flonase Allergy Relief) 50 mcg/spray [place], Suspension nasal inhaler Administer 2 sprays into each nostril once daily 16 Gram 5 06/19/2025 12:05 PM CDT 4 Active azithromycin (ZITHROMAX) 250 mg tablet take 2 tabs (500 mg) today (day 1), then 1 tab (250 mg) daily for 4 days (days 2-5) 6 Tablet 08/30/2024 11:24 AM CDT 4 Active ipratropium bromide (ATROVENT) 42 mcg (0.06 %) [place], Non-Aerosol Administer 1-2 sprays into each nostril 3 times daily. 15 mL 11 11/14/2024 4:54 PM SPECIAL EDUCATION SECRETARY 4 Active azithromycin (ZITHROMAX) 250 mg tablet take 2 tablets (500 mg) today (day 1), then one tablet (250 mg) daily for 4 days (days 2-5) 6 Tablet 01/17/2025 6:22 PM SPECIAL EDUCATION SECRETARY 5 Active spironolactone (ALDACTONE) 100 mg tablet Take 1 Tablet (100 mg) by mouth daily. 30 Tablet 5 Active fluticasone propionate (FLONASE) 50 mcg/spray [place], Suspension nasal inhaler Administer 1 [place] into each nostril 2 times daily. 16 Gram 5 5 Active Active Problems Patient Care Coordination No te Formatting of this note migh t be different from the original. Primary Care: Larry Galeano MD Referring Provider: [place] [address] [place] [address] Other: Problem Noted Date Diagnosed Date Nipple [...] on file Legal Sex Female 10:34 AM SPECIAL EDUCATION SECRETARY Gender Identity Not on file Sexual Orientation Not on file Last Filed Vital Signs Vital Sign Reading Time Taken Comments Blood Pressure 108/73 11/17/2015 12:36 PM SPECIAL EDUCATION SECRETARY Pulse 77 11/17/2015 12:36 PM SPECIAL EDUCATION SECRETARY Temperature 36.6 C (97.9 F) 11/17/2015 12:36 PM SPECIAL EDUCATION SECRETARY Respiratory Rate - - Oxygen Saturation - - Inhaled Oxygen Concentration - - Weight 52.6 kg (116 lb) 11/17/2015 12:36 PM SPECIAL EDUCATION SECRETARY Height 162.6 cm (5' 4) 11/17/2015 12:36 PM SPECIAL EDUCATION SECRETARY Body Mass Index 19.91 11/17/2015 12:36 PM SPECIAL EDUCATION SECRETARY Plan of Treatment Health Maintenance Due Date [...] PLANS (INTERNAL) [facility] Care Teams Oracle Drm Consultant Relationship Specialty Start Date End Date Larry Galeano MD PCP - General Internal Medicine 11/17/15
--- OUTSIDE RECORDS SUMMARY | 2025-06-23 01:41 | XMS_ITS | Clinical Summary ---
Author Organization [facility] Medical [facility] Building [address] [place] [address] Care Team Providers Care Weather Strip Mechanic Name Role Phone Alistair Coon MD Primary Care Provider [phone] Allergies No known active allergies Medications azithromycin [...] Department Care Team Description 05/07/2025 Results Follow-Up [facility] Obstetrical Gynecology [address] [phone] Kymberly Parsons MD Pap and High Risk HPV and Genotyping (Cytology Component) 04/29/2025 12:17 PM CDT - 04/29/2025 11:59 PM CDT Hospital Encounter [facility] Medical [facility] Building [address] [place] [address] Well woman exam Discharge Disposition: Discharge to home or self care 04/29/2025 9:30 AM CDT Office Visit [facility] Obstetrical Gynecology [address] [facility] [address] [place] [phone] Kymberly Parsons MD Well woman exam (Primary [...] on file 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 Gender Identity Not on file Sexual Orientation [...] HPV HR 16 Not Detected Not Detected [facility] Comment:Testing performed by : [facility], [address] [place]., [address] HPV HR 18 Not Detected Not Detected JOSE Comment:Testing performed by : [facility], [address] [place]., [address] HPV HR Non 16/18 Not Detected Not [...] data last revised 23 Testing performed by: [facility], [address] [place]., [address] Endocervical 04/29/2025 10:2 3 AM CDT 04/30/2025 7:44 AM CDT Narrative JOSE - 05/01/2025 4:47 AM CDT Clinical history and diagnosis->screening Testing type->Screening Last menstrual period (date if known)->03/24/25 Kymberly Parsons MD LAB BODY FLUIDS AND STOOL S ORDERABLES Final Result JOSE [address] [facility] [place] [address] [facility] * Pap and High Risk HPV and Genotyping (Cytology Component) (04/29/2025 10:23 AM CDT) Thin prep (Pap test) 04/29/2025 10:23 AM CDT 04/30/2025 2:17 AM CDT Narrative PATHOLOGY [facility] - 05/06/2025 9:14 PM CDT EPIC results best viewed via link to PDF [facility] [place] [address] Note to Patients: This report may contain [...] Gender: Veronika : 1975 (Age: 50) Address: [address] [place] [address] Hospital #: [id number] Service: DEFAULT Location: Patient Type: [facility] SPECIMEN Taken: 04/29/2025 Received: 04/30/2025 [...] this test have been verified by the [facility] Molecular Infectious Disease laboratory. Correlate with reported cytology results, as applicable. Interpretive data last revised 23 [facility]/05/06/2025 21:14 By this signature, I attest [...] histologic results be correlated for laboratory quality control associate & improvement standards. FOR ALL HIGH-GRADE CASES [...] determined by the Surgical Pathology Department at [facility] as part of an ongoing environmental quality analyst program and in compliance with [...] determined by the Surgical Pathology Department of [facility]. It has not been cleared or approved by the U. S. Food and Drug Administration. Kymberly Parsons MD LAB CYTOLOGY ORDERABLES F inal Result PATHOLOGY [facility] * Screening Mammogram Bilateral W [...] age 40, based on guidelines of the [place] [employer] (ACR Practice Parameter for the Performance of Screening and Diagnostic Mammography) and [place] [employer]. For women [...] Most Recently Relevant to Health Maintenance Insurance [email or web address] [place] [email or web address] [place] * Guarantor: Shanita Palmer Account Type Relation to Patient Date of Phone Billing Address Personal/Family Self 1975 [facility] [place] [address] [facility] Care Teams Weather Strip Mechanic Relationship Specialty Start Date End Date Alistair Coon MD [address] [address] PCP - General Family Medicine 07/08/22
--- OUTSIDE RECORDS SUMMARY | 2025-06-23 01:41 | XMS_ITS | Encounter Summary ---
Author Organization [facility] Healthcare Address [address] [place] [address] Care Team Providers Care Director Critical Care Name Role Phone Alistair Coon MD Primary Care Provider [phone] Encounter Details Date Type Department Care Team (Latest Contact Info) Description 05/07/2025 Results Follow-Up [facility] Medical Group Obstetrical Gynecology [address] [phone] Kymberly Parsons MD [address] [place] [phone] Pap and High Risk HPV and Genotyping (Cytology Component) Social History Tobacco Use Types Packs/Day Years Used Date Smoking Tobacco: Never Passive Smoke Exposure: Never Smokeless Tobacco: Never Comments No Sex and Gender Information Value Date Recorded Sex Assigned at Not on file 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
--- OUTSIDE RECORDS SUMMARY | 2025-06-23 01:41 | XMS_ITS | Patient Health Record ---
Author Organization [facility] Address [address] [place], [place] [phone] Care Team Providers Care Production Control Analyst Name Role Phone BILL Scott Unavailable Larry Galeano Unavailable Unavailable Reason For Referral No Information Medications Medication SIG (Take, Route, Frequency, Duration) Notes Start Date End Date Status Medrol Dosepak ORAL Medrol DosepakOr iginal MedicationMedrol Dosepak *Reorder from [employer] for eRx and Interaction Alerts* 06/22/2022 Active Plan Of Treatment No Information Insurance Providers Payer Name Payer Address Payer Phone Subscriber Number Group Number Insured Name Patient Relationship to Insured Coverage Start Date Coverage End Date [facility] ATTN CLAIMS [address] [place] [address] [id number] SHANITA PALMER Self - patient is the insured
--- OUTSIDE RECORDS SUMMARY | 2025-06-23 01:41 | XMS_ITS ---
Author Organization [facility] ([address]) Address [address] [place] [address] Care Team Providers Care Physician Assistant Primary Care Name Role Phone Froylan HARPER, Larry Primary Care Provider Richard Baez Unavailable [phone] Madonna HARPER, Kenn Unavailable Unavailable Sidra Molina [phone] REASON FOR VISIT ARC follow-up Encounters Encounter Location Date Provider Diagnosis [address] [address] 01/16/2025 Sidra Molina Plan Of Treatment No Information Progress Notes * Lindsay PALMER RDOB: [birth year] (50 yo F)Acc No.[id number]:01/16/2025 Progress Notes Patient: Leena RAGLAND Lindsay Meir Provider: Shalom Molina DNP PAPER MILL SUPERINTENDENT-C :1975 A ge:49 Y S ex:Female Date:01/16/2025 Address:[facility] [facility] Pcp:Larry Galeano MD Subjective: * [...] 01/16/2025 Generated for Brad zhu/Lakisha/Mario on: 0 06/23/2025 01:41 AM CDT
--- OUTSIDE RECORDS SUMMARY | 2025-06-23 01:41 | XMS_ITS | Clinical Summary ---
Author Organization [facility] [employer] Address [address] [address] Care Team Providers Care Resource Analyst Name Role Phone Unavailable Primary Care Provider Unavailabl e Source Comments [facility] [employer]non-owned Affiliates and Associated Physician Practices is amultiple site organization consisting of ambulatory clinics and hospital sitesin [place], [place] and [place]. This disclosure is being madepursuant to the Care Everywhere program and may not contain all information available regarding this patient. Last updated 18.[facility] [employer] Social History Tobacco Use Types Packs/Day Years [...] patient's age to complete this topic Insurance [facility] Address: [facility] [address] [place] [address]
--- OUTSIDE RECORDS SUMMARY | 2025-06-23 01:41 | XMS_ITS ---
Author Organization [facility] [place] ([address]) Address [address] [place] [address] Care Team Providers Care Card Seller Name Role Phone Froylan HARPER, Larry Primary Care Provider Richard Baez Unavailable [phone] Madonna HARPER, Kenn Unavailable Unavailable Sidra Molina [phone] REASON FOR VISIT ARC follow-up Encounters Encounter Location Date Provider Diagnosis [address] [address] 03/20/2025 Sidra Molina Plan Of Treatment No Information Progress Notes * Lindsay PALMER RDOB: [birth year] (50 yo F)Acc No.[id number]:03/20/2025 Progress Notes Patient: Leena RAGLAND Lindsay Meir Provider: Shalom Molina DNP CUMULATIVE EFFECTS ANALYST-C :1975 A ge:50 Y S ex:Female Date:03/20/2025 Address:[address] [facility] Pcp:Larry Galeano MD Subjective: * [...] 03/20/2025 Generated for Brad zhu/Lakisha/Mario on: 0 06/23/2025 01:41 AM CDT
--- OUTSIDE RECORDS SUMMARY | 2025-06-23 01:42 | XMS_ITS | Patient Health Record ---
Author Organization [facility] [employer] [place] ([address]) Address [address] [place] [address] Care Team Providers Care Assisted Living Home Director Name Role Phone Froylan HARPER, Larry Primary Care Provider Richard Baez Unavailable [phone] Kenn Peacock MD Unavailable Unavailable Sidra Molina Unavailable [phone] Allergies No Known Allergies Reason For Referral [...] affected eye once a day Active Ipratropium [place] 0.06 % 2 spray(s) intranasally 3 times [...] review and pick correct strength-formulat ion from [employer] options. If intended option is not shown, discontinue and re-order from Quick Search* Active Patanase 665 MCG/INH 2 SPRAY(S) INTRANASALLY QDAY, PRN; Duration: 30 DAY(S) *Please review and pick correct strength-formulat ion from [employer] options. If intended option is not shown, [...] Status Risk Notes Problem Chronic allergic conjunctivitis (97534465) Other chronic allergic conjunctivitis (H10.45) Active confirmed Problem Allergic rhinitis caused by pollen (disorder) (80159496) Allergic rhinitis due to pollen (J30.1) Active confirmed Problem Allergic rhinitis caused by animal hair and dander (792574569127271) Allergic rhinitis due to animal (cat) (dog) hair and dander (J30.81) Active confirmed Problem Other allergic rhinitis (J30.89) Active confirmed Problem Cough (67460879) Cough (R05) Active confirmed Plan Of Treatment No Information Insurance Providers Payer Name Payer Address Payer Phone Subscriber Number Group Number Insured Name Patient Relationship to Insured Coverage Start Date Coverage End Date [facility] [address] [place] [address] [id number] Lindsay Caputo Self - patient is the insured Medical (General) History Medical History History ICD Code Allergic rhinitis due to pollen Allergic rhinitis due to animal (cat) (d og) hair and dander Other allergic rhinitis Other chronic allergic conjunctivitis Cough Surgical History Surgery Date(Month/Year)
[2025-06-23] MEDS: ACETAMINOPHEN 500 MG TABLET 1000 MG PO (06:55)
[2025-06-23] MEDS: LACTATED RINGERS 1,000 ML 30 ML IV CONT ×2 (07:00→10:05)
[2025-06-23] MEDS: KETOROLAC 15 MG/ML VIAL (*BKC) IV PUSH ×2 (07:00→09:43)
[2025-06-23 07:23] LABS: BEDSIDEPREGUCG Negative (Negative)
[2025-06-23] MEDS: SCOPOLAMINE 1 MG PATCH 1 PATCH TRANSDERM (07:27)
--- NOTE | 2025-06-23 07:42 | WPDANESEPPF ---
Anes - Initial Pre Proc Eval Procedure: Operation Date: 06/23/25 08:30 Proposed Procedures p Laparoscopic Cholecystectomy, Possible Open - Madhu Riddle MD Date/Time: 06/23/25 07:42 Surgeon: Madhu Riddle MD Pre Op Diagnosis: Biliary Colic Gallbladder Dysfunction Patient Data Age: 50 Gender: F Height: 1.63 m Weight: 51.9 kg Last Vital Signs Temp 37.3 C 06/23/25 06:35 Pulse 83 06/23/25 06:35 Resp 16 06/23/25 06:35 BP 120/81 06/23/25 06:35 Pulse Ox 100 06/23/25 06:35 O2 Del Method Room Air 06/23/25 06:35 Allergies Allergy/AdvReac Type Severity Reaction Status Date / Time No Known Allergies Allergy Verified 06/23/25 07:19 Home Medications ?Medication ?Instructions ?Recorded ?Confirmed ?Type fexofenadine 180 mg tablet 180 mg PO DAILY PRN Allergy 09/28/21 06/19/25 History (Perlita Allergy) spironolactone 100 mg tablet 100 mg PO DAILY 09/28/21 06/23/25 History Women's Daily 1 tab-cap PO DAILY 01/05/23 06/23/25 History fluticasone propionate 50 1 spray intranasal DAILY 01/05/23 06/23/25 History mcg/actuation nasal spray,suspension (Flonase Allergy Relief) omega 6-ebg-zoe-fish oil 1,200 mg 1 cap PO DAILY 01/05/23 06/23/25 History (144 mg-216 mg) capsule (Fish Oil) ipratropium bromide 42 mcg (0.06 1 - 2 spray intranasal TID #15 mL 11/11/24 06/23/25 Rx %) nasal spray cholecalciferol (vitamin D3) 125 5,000 unit PO DAILY 06/18/25 06/23/25 History mcg (5,000 unit) tablet (Vitamin D3) magnesium glycinate 300 mg PO HS 06/18/25 06/23/25 History Laboratory Tests 06/23/25 07:21 POC Urine HCG, Qual Negative (Negative) Patient hx anesthesia problems: none Family hx anesthesia problems: none Results Review: All pre-operative results and documents have been reviewed as part of the pre-operative evaluation. [facility], [facility] Past Medical History Medical History Recurrent biliary colic (~2024) Right upper quadrant ultrasound 05/14/2025 normal. HIDA scan with ejection fraction 11% 06/11/2025. Abnormal serum protein test (11/11/24) globulin slightly low at 1.7 on 11/11/24 . Protein electrophoresis on 11/15/2024 normal with slightly low gamma globulin level at 0.7 With normal values 0.8 -1.7. Breast cancer screening by mammogram normal mammogram 08/05/2024. Atypical chest pain Adnexal cyst (06/07/23) right adnexal cyst up to 3.[address] of the abdomen and pelvis 06/07/2023. Bruxism mouth guard from dentist Situational stress (~2021) mother with pancreatic cancer. 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 Vitamin B12 deficiency (11/07/22) level low at 346 with goal greater than 400 with hemoglobin 15.3 on 11/07/2022. level normal at 556 with hemoglobin 15.3 on 11/11/2024. Lower abdominal pain BMI 20.0-20.9, adult Acute non-recurrent maxillary sinusitis Irregular menses Otitis Encounter for wellness examination in adult Body mass index (BMI) of 19.0 to 19.9 in adult Acne treated by log snaker Dr. romo Seasonal allergic rhinitis treated by outpatient therapist with immunotherapy with allergies to grasses, mold, trees, dust mite, ragweed, dander Allergies Family History Family History Father Diabetes mellitus Heart disease Mother Lymphoma Diabetes mellitus Grandparent Hypertension Grandparent Diabetes mellitus Social History Social History Smoking status: Never smoker Alcohol intake: current Alcohol use details: occasionally Substance use: never Substance use type: does not use Lack of Transportation: No Lack of Food: Never True Current Housing: I Have Housing Concerned About Future Housing: No Difficulty Paying Gas/Electric Bills: No Difficulty Paying for Meds: No Currently Unemployed: No Education: Master's Degree or Higher Difficulty w/ Childcare or Family Care: No Living arrangements: with family Spiritual care concerns: No Anes - Eval Final PreProcedure Day of Procedure 06/23/25 07:42 Patient weight: normal Heart: regular rate and rhythm Lungs: clear to auscultation Airway: Mallampati scale class II Neurological: alert and oriented Last oral intake: >/= 8 hours ASA classification: I Emergent: no Anesthetic plan: proceed Anesthesia type and monitoring: general ETT and standard monitoring Results Review: All pre-operative results and documents have been reviewed as part of the pre-operative evaluation. Informed Consent: The patient's anesthetic plan and its attendant risks and benefits were discussed with the patient/family/POA. Questions were solicited and answers provided to the satisfaction of the patient/family/POA.
--- NOTE | 2025-06-23 08:38 | WPDHPUPDATE1 ---
History and Physical Update Update Date/Time: 06/23/25 08:38 History and Physical has been reviewed, including an updated exam of the patient. There are NO changes in the patient's condition. Risks, benefits, and alternatives have been discussed and questions answered. Patient agrees to proceed with procedure.
[2025-06-23] MEDS: LIDO 1%/EPINEPHRINE 1:100,000 50 ML VIAL 30 ML INFILTRATE (08:44)
[2025-06-23] MEDS: ceFAZolin 2 GM in SODIUM CHLORIDE 0.9% IV 50 ML 100 ML IVPB (08:44)
--- NOTE | 2025-06-23 09:13 | S_PTH ---
PATIENT: Lindsay Caputo LOC: [facility] U#:[id number] AGE/SX: 50/F ROOM: RE06/23/[address]: Madhu Riddle MD : 1975 BED: DIS: 06/23/2025 SPEC #: [id number] RECD: 06/23/25 10:53 STATUS: KERI REQ #: [id number] MADELINE: 06/23/25 09:[address]: Madhu Riddle DEPT: [facility] Surgical RECD BY: Janae Rich ENTERED: 06/23/25 10:53 SP TYPE: Surgical OTHR DR: Alistair oCon MD Tissues: A - Gallbladder Procedures: Hematoxylin and Eosin Stain Gross and Microscopic Level 3
--- NOTE | 2025-06-23 10:04 | P.OP_ITS ---
Procedure Note - Detailed Date of Procedure 06/23/25 Pre-op Diagnosis Biliary Colic Gallbladder Dysfunction Post-op Diagnosis Same Procedure Performed Laparoscopic cholecystectomy Surgeon Madhu Riddle MD Computer Numer[employer] Control Machinist Jay Santiago, [facility] Anesthesia General Indications Patient is a 50-year-old female presented with complaints of epigastric right upper quadrant abdominal pain. She had a HIDA scan performed showed a gallbladder ejection fraction 11% which is low. She had no gallstones.. She has symptomatic biliary colic and so she presents out now for laparoscopic cholecystectomy. Findings Gallbladder was normal in appearance. There is no evidence of gallbladder wall thickening. No gallstones were palpated in the gallbladder after was removed. Description of Procedure After informed consent was obtained patient brought to the operating room she was placed supine position and general endotracheal anesthesia was administered. The abdomen is then prepped and draped usual sterile fashion. Time-out was then performed correctly identifying the patient as well as procedure to be performed. She was given perioperative IV antibiotics. I then entered the abdomen left upper quadrant utilizing a 5mm Optiview port. Once inside the abdomen insufflated to adequate pneumoperitoneum of 15mmHg of CO2. The view of the periumbilical area was obtained there were no adhesions area. I then placed a 5mm periumbilical trocar port. The laparoscopic then switched over to the periumbilical trocar port and looking to the upper portions of the abdomen a 10mm epigastric trocar port and 2 right lateral subcostal 5mm trocar ports were placed under direct visualization. The gallbladder was visualized it was normal in appearance. It was mildly distended. There is no gallbladder wall thi ckening or adhesions of the omentum stomach or duodenum to the gallbladder. A laparoscopic grasper was used to hold the gallbladder at the dome and the gallbladder was held over the right half liver towards the right shoulder. A 2nd grasper used to hold the gallbladder at the infundibulum. I then proceeded to strip down the visceral peritoneum off of the infundibular gallbladder to identify the cystic duct. Cystic duct was then dissected out circumferentially. The cystic artery was identified and dissected out circumferentially as well. Posterior wall the gallbladder at the infundibulum dissected free liver into the critical view was obtained. At this point I then placed 2 clips proximally cystic duct and 2 clips distally high on infundibular gallbladder. Cystic duct was then divided with Endo Meredith. In a similar fashion cystic artery clipped and divided as well. The gallbladder was then resected off liver electrocautery. Once the gallbladder was released from the liver is placed into an Endo-Catch bag and brought out through the epigastric port site. There is no spillage of bile. The gallbladder was passed off table sent to pathology for examination. I then irrigated out the right upper quadrant the abdomen gallbladder fossa with sterile saline solution. Hemostasis was excellent. No there was no evidence of bile leak. I then aspirated the fluid from the right upper quadrant the abdomen from the pelvis. I then removed all the trocar ports under direct visualization all port sites appeared hemostatic. I then allowed the abdomen to decompress. Port sites were then irrigated sterile saline solution. Hemostasis was good. I closed the 10mm epigastric trocar port fascial defect utilizing 0 Vicryl suture placed in a figure-eight fashion. The skin edges were then approximated utilizing a running subcuticular 4 Monocryl suture. Incisions were then dressed with skin glue. The patient tolerated the procedure well no complications. All sponges, needles, and instrument counts were correct at the end procedure. EBL was _5__cc. The patient was awakened and taken to recovery in stable and satisfactory condition. Implants None Estimated Blood Loss 5 Drains No Packing No Pathology Yes (Gallbladder to pathology) Complications No immediate complications Condition Stable Disposition PACU [facility] Billing Surgery - Charge Forward: Surgery Billing
[2025-06-23] MEDS: ONDANSETRON INJ 4 MG/2 ML VIAL IV PUSH (11:18)
[2025-06-23] MEDS: oxyCODONE HCL (*CRX) 5 MG TAB IR PO (11:26)
== END 2025-06-23 12:24 | disposition home or self-care (01) ==
PROVIDERS: PCP Family Medicine; Visit Provider Surgery
PROC: 0FT44ZZ Resection of Gallbladder, Percutaneous Endoscopic Approach (ICD-10-PCS; CPT 47562; principal; 2025-06-23 08:30)
DX: K81.1 Chronic cholecystitis (principal); E53.8 Deficiency of other specified B group vitamins; M26.621 Arthralgia of right temporomandibular joint; Z87.19 Personal history of other diseases of the digestive system; Z80.0 Family history of malignant neoplasm of digestive organs; Z80.7 Family history of other malignant neoplasms of lymphoid, hematopoietic and related tissues; Z82.49 Family history of ischemic heart disease and other diseases of the circulatory system
CPT/HCPCS: 47562; 88304; J0690; A9270; J1100; J1885; J2003; J2004; J2250; J2405; J2704; J3010; J7120